=== PATIENT | male | born 1955 | race Caucasian/White ===

== ENCOUNTER 2017-12-10 17:00 | Inpatient (IN) | payer MEDICARE ==
[2017-12-10 17:00] VITALS: BMI 27.4
[2017-12-10] MEDS ORDERED: Sodium Chloride 0.9% 1,000 ML IV ONE (17:57)
--- NOTE | 2017-12-10 18:00 | C.PDOC ---
History Of Present Illness <Lindsay Valencia - Last Filed: 12/10/17 17:57> <Penny Maria Alana - Last Filed: 12/10/17 18:04> rCistopher Gage is a 62 year old male, with a past medical history of, who presents to the emergency department complaining of fever, body aches, cough and diarrhea onset since last night. Patient had temperature of 102.2. He denies any other medical complaints. PMD: None provided. (Penny Maria) <Lindsay Valencia - Last Filed: 12/10/17 17:57> History Per: Patient History/Exam Limitations: no limitations Onset/Duration Of Symptoms: Days (x1) Current Symptoms Are (Timing): Still Present Associated Symptoms: Fever, Cough <Penny Maria - Last Filed: 12/10/17 18:04> Time Seen by Provider: 12/10/17 17:48 Chief Complaint (Nursing): Flu-like Symptoms Past Medical History - Medical History PMH: Anemia, Arthritis, CAD, CHF, CVA, Diabetes, HTN, Hypercholesterolemia, Peripheral Edema Denies: Chronic Kidney Disease Surgical History: CABG, Cholecystectomy, Coronary Stent, Pacemaker Family History: States: Unknown Family Hx - Social History Hx Alcohol Use: No Hx Substance Use: No - Immunization History Hx Tetanus Toxoid Vaccination: No Hx Influenza Vaccination: Yes Hx Pneumococcal Vaccination: Yes <Lindsay Valencia - Last Filed: 12/10/17 17:57> Vital Signs: Last Vital Signs Temp 102.2 F H 12/10/17 17:30 Pulse 77 12/10/17 17:30 Resp 20 12/10/17 17:30 BP 165/73 H 12/10/17 17:30 Pulse Ox 94 L 12/10/17 18:00 - [facility] Procedures CORONAR ARTERIOGR-2 CATH (02/01/14) ENDOSC POLYPECTOMY OF LG INTEST (07/26/15) ESOPHAGOGASTRODUODENOSCOPY [EGD] W/CLOSED BIOPSY (07/26/15) LEFT HEART CARDIAC CATH (02/01/14) LT HEART ANGIOCARDIOGRAM (02/01/14) OCCUPATIONAL THERAPY (11/06/14) OTHER SKIN & SUBQ I D (06/05/13) PACKED CELL TRANSFUSION (09/09/14) PHYSICAL THERAPY NEC (11/06/14) TOE AMPUTATION (09/09/14) ED Course And Treatment O2 Sat by Pulse Oximetry: 94 <Lindsay Valencia - Last Filed: 12/10/17 17:57> Disposition <Lindsay Valencia - Last Filed: 12/10/17 17:57> <Penny Maria - Last Filed: 12/10/17 18:04> - Disposition Forms: [facility] (Khmer)
--- NOTE | 2017-12-10 18:08 | C.PDOC ---
History Of Present Illness Cristopher Gage is a 62 year old male, with a past medical history of diabetes, HTN, CHF, and CAD, who presents to the emergency department complaining of fever, body aches, cough and diarrhea onset since last night. Patient had a max temperature of 102.2. She denies any other medical complaints. PMD: None provided. Time Seen by Provider: 12/10/17 17:48 Chief Complaint (Nursing): Flu-like Symptoms History Per: Patient History/Exam Limitations: no limitations Onset/Duration Of Symptoms: Days (x1) Current Symptoms Are (Timing): Still Present Associated Symptoms: Fever, Cough, Diarrhea, Other (body aches) Ear Symptoms: Bilateral: None Past Medical History Reviewed: Historical Data, Nursing Documentation, Vital Signs Vital Signs: Last Vital Signs Temp 102.2 F H 12/10/17 17:30 Pulse 77 12/10/17 17:30 Resp 20 12/10/17 17:30 BP 165/73 H 12/10/17 17:30 Pulse Ox 94 L 12/10/17 19:02 - Medical History PMH: Anemia, Arthritis, CAD, CHF, CVA, Diabetes, HTN, Hypercholesterolemia, Peripheral Edema Denies: Chronic Kidney Disease Surgical History: CABG, Cholecystectomy, Coronary Stent, Pacemaker - [facility] Procedures CORONAR ARTERIOGR-2 CATH (02/01/14) ENDOSC POLYPECTOMY OF LG INTEST (07/26/15) ESOPHAGOGASTRODUODENOSCOPY [EGD] W/CLOSED BIOPSY (07/26/15) LEFT HEART CARDIAC CATH (02/01/14) LT HEART ANGIOCARDIOGRAM (02/01/14) OCCUPATIONAL THERAPY (11/06/14) OTHER SKIN & SUBQ I D (06/05/13) PACKED CELL TRANSFUSION (09/09/14) PHYSICAL THERAPY NEC (11/06/14) TOE AMPUTATION (09/09/14) Family History: States: Unknown Family Hx - Social History Hx Tobacco Use: No (Former smoker) Hx Alcohol Use: No Hx Substance Use: No - Immunization History Hx Tetanus Toxoid Vaccination: No Hx Influenza Vaccination: Yes Hx Pneumococcal Vaccination: Yes Review Of Systems Constitutional: Positive for: Fever, Other (body aches). Negative for: Chills Respiratory: Positive for: Cough Gastrointestinal: Positive for: Diarrhea Physical Exam - Physical Exam Appears: No Acute Distress Skin: Warm, Dry Head: Atraumatic, Normacephalic Eye(s): bilateral: Normal Inspection, PERRL, EOMI Ear(s): Bilateral: Normal Nose: Normal Oral Mucosa: Moist Throat: Normal Neck: Normal ROM, Supple Cardiovascular: Rhythm Regular, No Murmur Respiratory: Rhonchi (mild), No Wheezing Gastrointestinal/Abdominal: Normal Exam, Soft, No Tenderness, No Guarding, No Rebound Back: Normal Inspection, No CVA Tenderness, No Vertebral Tenderness Extremity: Normal ROM, No Pedal Edema, No Deformity, No Swelling Neurological/Psych: Oriented x3 (alert) ED Course And Treatment - Laboratory Results Result Diagrams: 12/10/17 18:29 12/10/17 18:29 Lab Interpretation: Abnormal ECG: Interpreted By Me ECG Rhythm: Sinus Rhythm, Nonspecific Changes Rate From EC O2 Sat by Pulse Oximetry: 94 (RA) Pulse Ox Interpretation: Abnormal - Radiology CXR: Interpreted by Me CXR Interpretation: Yes: Cardiomegaly Progress Note: Treated with IVF NSS and duoneb x 3. On re-evaluation lungs clear. Treated with tylenol and tamiflu Reassessment Condition: Improved - Physician Consult Information Physician Contacted: Ben Rodriguez Outcome Of Conversation: admit Medical Decision Making Medical Decision Making: Initial Impression: Flu Initial Plan: --EKG --CMP --CBC w/ differential --Chest two views (PA/LAT) [RAD] --Combivent Respimat 3 ml IH Q15H --Sodium Chloride 1,000 ml IV 1,000 mls/hr --Blood culture --Urine culture --Nebulizer treatment --Peak flow pre/post Tx --Influenza A B --reevaluation Disposition Discussed With : Ben Rodriguez Doctor Will See Patient In The: Hospital - Disposition Disposition: HOSPITALIZED Disposition Time: 19:00 Condition: STABLE Forms: [facility] (Yakut) - POA Present On Arrival: None - Clinical Impression Clinical Impression: Influenza, Fever, Diabetes - Scribe Statement The provider has reviewed the documentation as recorded by the Sashaibdavid Griffin All medical record entries made by the Scribe were at my direction and personally dictated by me. I have reviewed the chart and agree that the record accurately reflects my personal performance of the history, physical exam, medical decision making, and the department course for this patient. I have also personally directed, reviewed, and agree with the discharge instructions and disposition.
[2017-12-10] MEDS: Albuterol-Ipratrop 3 mg / 0.5 (3 ml) UD IH SCH ×3 (18:10→18:40)
[2017-12-10] MEDS ORDERED: Albuterol-Ipratrop 3 mg / 0.5 (3 ml) UD ONE (18:14)
[2017-12-10 18:36] LABS: BASO # 0.1 K/uL (0.0-0.2); BASO % 0.5 % (0.0-2.0); EOS % 0.1 % (0.0-4.0); LYMPH # 0.6 K/uL (1.0-4.3); LYMPH % 5.3 % (20.0-40.0); MEAN CELL VOLUME 92.1 fL (80.0-94.0); MEAN CORPUSCULAR HGB CONC 33.7 g/dL (33.0-37.0); MEAN PLATELET VOLUME 9.5 fL (7.2-11.7); MONO # 2.2 K/uL (0.0-0.8); MONO % 19.3 % (0.0-10.0); NEUT # 8.6 K/uL (1.8-7.0); NEUT % 74.8 % (50.0-75.0); PLATELET COUNT 123 K/uL (130-400); RED CELL DISTRIBUTION WIDTH 13.3 % (11.5-14.5); WHITE BLOOD COUNT 11.5 K/uL (4.8-10.8)
[2017-12-10 18:50] LABS: ALB/GLOB RATIO 1.2 (1.0-2.1); ALBUMIN 3.8 g/dL (3.5-5.0); CALCIUM 9.1 mg/dl (8.6-10.4)
[2017-12-10 19:24] LABS: BANDS 1 % (0-2); EOSINOPHIL 1 % (0-4); LYMPHOCYTE 5 % (20-40); MONOCYTE 18 % (0-10); NEUTROPHIL 75 % (50-75); PLATELET ESTIMATE SLIGHTLY DECREASED (NORMAL); TOTAL CELLS COUNTED 100
[2017-12-10 19:24] LABS: PH,URINE 5.5 (5.0-8.0); URINE BILIRUBIN NEGATIVE (NEGATIVE); URINE BLOOD TRACE-INTACT (NEGATIVE); URINE CLARITY CLEAR (Clear); URINE COLOR YELLOW (YELLOW); URINE GLUCOSE (UA) 250 mg/dL (Normal); URINE LEUKOCYTE ESTERASE NEGATIVE Leu/uL (Negative); URINE NITRATE NEGATIVE (NEGATIVE); URINE PROTEIN 100 mg/dL (NEGATIVE); URINE UROBILINOGEN 0.2 mg/dL (0.2-1.0)
[2017-12-10 19:25] LABS: ANISOCYTOSIS SLIGHT; POIKILOCYTOSIS SLIGHT
[2017-12-10 19:28] LABS: SQUAMOUS EPITHIAL < 1 /hpf (0-5); URINE HYALINE CAST >20 /lpf (0-2)
[2017-12-10] MEDS ORDERED: Home Med 1 UNIT (Atorvastatin Calcium [Atorvastatin Calcium] 80 MG) PO SCH (22:00)
--- NOTE | 2017-12-10 23:43 | CP.PCM.HP ---
History of Present Illness - History of Present Illness History of Present Illness: CC: cough, shortness of breath, weakness, lethargy, fever HPI: 62 year old male, with a past medical history of diabetes on insulin, HTN, CHF, dilated cadiomyopathyand CAD, who presents to the emergency department complaining of fever, body aches, cough with sputum and diarrhea onset since last night. Patient had a max temperature of 102.2. pt also c/o chest pain on coughing. She denies any other medical complaints.pt is a poor historain and giving vague history cannot provide much details Present on Admission - Present on Admission Any Indicators Present on Admission: Yes Review of Systems - Review of Systems Systems not reviewed;Unavailable: Acuity of Condition - Constitutional Constitutional: Fatigue, Fever, Lethargy, Malaise, Weakness - EENT Eyes: absent: As Per HPI, Blind Spots, Blurred Vision, Change in Vision, Decreased Night Vision, Diplopia, Discharge, Dry Eye, Exophthalmos, Floaters, Irritation, Itchy Eyes, Loss of Peripheral Vision, Pain, Photophobia, Requires Corrective Lenses, Sees Flashes, Spots in Vision, Tunnel Vision, Other Visual Disturbances, Loss of Vision, Other Ears: absent: As Per HPI, Decreased Hearing, Ear Discharge, Ear Pain, Tinnitus, Abnormal Hearing, Disequilibrium, Dizziness, Other Nose/Mouth/Throat: Nasal Congestion, Nasal Discharge - Cardiovascular Cardiovascular: Dyspnea, Dyspnea on Exertion - Respiratory Respiratory: Cough, Dyspnea, Dyspnea on Exertion, Wheezing, Chest Congestion, Pain with Coughing - Gastrointestinal Gastrointestinal: absent: As Per HPI, Abdominal Pain, Belching, Bloating, Change in Bowel Habits, Change in Stool Character, Coffee Ground Emesis, Constipation, Cramping, Diarrhea, Dyspepsia, Dysphagia, Early Satiety, Excessive Flatus, Fecal Incontinence, Heartburn, Hematemesis, Hematochezia, Loose Stools, Melena, Nausea, Odynophagia, Temesmus, Vomiting, Other - Genitourinary Genitourinary: absent: As Per HPI, Change in Urinary Stream, Difficulty Urinating, Dysuria, Flank Pain, Hematuria, Pyuria, Nocturia, Urinary Incontinence, Urinary Frequency, Urinary Hesitance, Urinary Urgency, Voiding Freq/Small Amts, Freq UTI, Hx Renal/Bladder Calculi, Hx /Renal Surgery, Bladder Distension, Other Past Patient History - Tetanus Immunizations Tetanus Immunization: Unknown - Past Medical History & Family History Past Medical History?: Yes - Past Social History Smoking Status: Former Smoker - CARDIAC Hx Congestive Heart Failure: Yes Hx Hypercholesterolemia: Yes Hx Hypertension: Yes Hx Pacemaker: Yes Hx Peripheral Edema: Yes - HEENT Hx HEENT Problems: Yes (RETINAL BLEEDING) Hx Glaucoma: Yes - RENAL Hx Chronic Kidney Disease: No - HEMATOLOGICAL/ONCOLOGICAL Hx Anemia: Yes - INTEGUMENTARY Hx Dermatological Problems: No - MUSCULOSKELETAL/RHEUMATOLOGICAL Hx Falls: Yes - PSYCHIATRIC Hx Substance Use: No - SURGICAL HISTORY Hx Cholecystectomy: Yes Hx Coronary Artery Bypass Graft: Yes Hx Coronary Stent: Yes - ANESTHESIA Hx Anesthesia: Yes Hx Anesthesia Reactions: No Hx Malignant Hyperthermia: No Meds Allergies/Adverse Reactions: Allergies Allergy/AdvReac Type Severity Reaction Status Date / Time No Known Allergies Allergy Verified 02/01/14 09:10 Physical Exam - Constitutional Appears: No Acute Distress - Head Exam Head Exam: ATRAUMATIC, NORMAL INSPECTION, NORMOCEPHALIC - Eye Exam Eye Exam: EOMI, Normal appearance, PERRL Pupil Exam: NORMAL ACCOMODATION, PERRL - Respiratory Exam Respiratory Exam: Decreased Breath Sounds, Rhonchi, Wheezes, NORMAL BREATHING PATTERN - Cardiovascular Exam Cardiovascular Exam: REGULAR RHYTHM - GI/Abdominal Exam GI & Abdominal Exam: Normal Bowel Sounds, Soft. absent: Tenderness - Neurological Exam Neurological exam: Alert, Oriented x3 - Psychiatric Exam Psychiatric exam: Anxious Results - Vital Signs Recent Vital Signs: Last Vital Signs Temp 98.9 F 12/10/17 22:39 Pulse 58 L 12/10/17 22:39 Resp 20 12/10/17 22:39 BP 151/65 H 12/10/17 22:39 Pulse Ox 95 12/10/17 22:39 - Labs Result Diagrams: 12/10/17 18:29 12/10/17 18:29 Labs: Laboratory Results - last 24 hr 12/10/17 12/10/17 12/10/17 18:29 18:29 18:32 WBC 11.5 H RBC 2.90 L Hgb 9.0 L Hct 26.8 L MCV 92.1 MCH 31.0 MCHC 33.7 RDW 13.3 Plt Count 123 L D MPV 9.5 Neut % (Auto) 74.8 Lymph % (Auto) 5.3 L Reeves % (Auto) 19.3 H Eos % (Auto) 0.1 Baso % (Auto) 0.5 Neut # (Auto) 8.6 H Lymph # (Auto) 0.6 L Reeves # (Auto) 2.2 H Eos # (Auto) 0.0 Baso # (Auto) 0.1 Neutrophils % (Manual) 75 Band Neutrophils % 1 Lymphocytes % (Manual) 5 L Monocytes % (Manual) 18 H Eosinophils % (Manual) 1 Platelet Estimate Slightly decreased L Poikilocytosis (manual Slight Anisocytosis (manual) Slight Sodium 131 L Potassium 4.8 Chloride 95 L Carbon Dioxide 27 Anion Gap 13 BUN 37 H Creatinine 2.1 H Est GFR ( Amer) 39 Est GFR (Non-Af Amer) 32 POC Glucose (mg/dL) Random Glucose 329 H Calcium 9.1 Total Bilirubin 0.5 AST 27 ALT 27 Alkaline Phosphatase 69 Total Protein 7.0 Albumin 3.8 Globulin 3.2 Albumin/Globulin Ratio 1.2 Urine Color Urine Clarity Urine pH Ur Specific [place] Urine Protein Urine Glucose (UA) Urine Ketones Urine Blood Urine Nitrate Urine Bilirubin Urine Urobilinogen Ur Leukocyte Esterase Urine WBC (Auto) Urine RBC (Auto) Ur Squamous Epith Cells Hyaline Casts Influenza Typ A,B (EIA) Pos for influenza a H 12/10/17 12/10/17 19:08 21:12 WBC RBC Hgb Hct MCV MCH MCHC RDW Plt Count MPV Neut % (Auto) Lymph % (Auto) Reeves % (Auto) Eos % (Auto) Baso % (Auto) Neut # (Auto) Lymph # (Auto) Reeves # (Auto) Eos # (Auto) Baso # (Auto) Neutrophils % (Manual) Band Neutrophils % Lymphocytes % (Manual) Monocytes % (Manual) Eosinophils % (Manual) Platelet Estimate Poikilocytosis (manual Anisocytosis (manual) Sodium Potassium Chloride Carbon Dioxide Anion Gap BUN Creatinine Est GFR ( Amer) Est GFR (Non-Af Amer) POC Glucose (mg/dL) 306 H Random Glucose Calcium Total Bilirubin AST ALT Alkaline Phosphatase Total Protein Albumin Globulin Albumin/Globulin Ratio Urine Color Yellow Urine Clarity Clear Urine pH 5.5 Ur Specific [place] 1.025 Urine Protein 100 Urine Glucose (UA) 250 Urine Ketones Negative Urine Blood Trace-intact Urine Nitrate Negative Urine Bilirubin Negative Urine Urobilinogen 0.2 Ur Leukocyte Esterase Negative Urine WBC (Auto) 1 Urine RBC (Auto) 8 H Ur Squamous Epith Cells < 1 Hyaline Casts >20 H Influenza Typ A,B (EIA) Assessment & Plan (1) Diabetes Status: Acute (2) Fever Status: Acute (3) Influenza Status: Acute (4) Anemia Status: Acute (5) CHF (congestive heart failure) Status: Acute
[2017-12-11] MEDS: (Novolog) Insulin Aspart, Recombinant 100 u/ml 10 ml vial SC SCH ×4 (08:30→21:49)
--- NOTE | 2017-12-11 08:39 | RAD ---
Chest x-ray two views History: Shortness of breath. Comparison: 12/06/2016 Findings: Mild venous congestion. Biapical pleural thickening with upper lobe granulomatous changes. Cardiomegaly. Tortuous ectatic aorta. Status post median sternotomy. Prior valve replacement. Left-sided pacemaker. Calcification at the aortic knob. Degenerative changes in the spine and shoulders. Impression: Mild venous congestion. Biapical pleural thickening with upper lobe granulomatous changes. Cardiomegaly. Tortuous ectatic aorta. Status post median sternotomy. Prior valve replacement. Left-sided pacemaker. Calcification at the aortic knob.
[2017-12-11] MEDS: Enoxaparin 40 mg Syringe SC SCH (09:52)
[2017-12-11] MEDS ORDERED: (Novolog) Insulin Aspart, Recombinant 100 u/ml 10 ml vial SC ONE (12:30)
--- NOTE | 2017-12-11 21:52 | CARD ---
APPROVED REPORT EKG Measurement Heart [id number] <Conclusion> Normal sinus rhythm Possible Left atrial enlargement Nonspecific ST and T wave abnormality Abnormal ECG
--- NOTE | 2017-12-11 22:43 | CP.PCM.PN ---
Subjective - Date & Time of Evaluation Date of Evaluation: 12/11/17 Time of Evaluation: 19:40 - Subjective Subjective: Pt seen and evaluated at bedside, is still coughing and feels weak and short of breath on medical management Objective - Vital Signs/Intake and Output Vital Signs (last 24 hours): Temp Pulse Resp BP Pulse Ox 100.3 F H 63 18 153/63 H 95 12/11/17 22:03 12/11/17 22:03 12/11/17 22:03 12/11/17 22:03 12/11/17 15:57 Intake and Output: 12/11/17 12/12/17 18:59 06:59 Intake Total 300 200 Balance 300 200 - Medications Medications: Current Medications Acetaminophen (Tylenol 325mg Tab) 650 mg PO Q6 PRN PRN Reason: Fever >100.4 F Last Admin: 12/11/17 09:49 Dose: 650 mg Carvedilol (Coreg) 25 mg PO BID [facility] Last Admin: 12/11/17 17:42 Dose: 25 mg Clopidogrel Bisulfate (Plavix) 75 mg PO DAILY [facility] Last Admin: 12/11/17 09:49 Dose: 75 mg Enoxaparin Sodium (Lovenox) 40 mg SC DAILY [facility] Last Admin: 12/11/17 09:52 Dose: 40 mg Furosemide (Lasix) 40 mg PO TID [facility] Hydralazine HCl (Apresoline) 50 mg PO TID [facility] Last Admin: 12/11/17 17:42 Dose: 50 mg Ceftriaxone Sodium 1 gm/ (Sodium Chloride) 100 mls @ 100 mls/hr IVPB Q24H [facility] Insulin Aspart (Novolog) 0 unit SC ACHS [facility] PRN Reason: Protocol Last Admin: 12/11/17 21:49 Dose: 2 unit Isosorbide Mononitrate (Imdur) 60 mg PO DAILY [facility] Last Admin: 12/11/17 09:49 Dose: 60 mg Oseltamivir Phosphate (Tamiflu Cap) 75 mg PO BID [facility] Stop: 12/15/17 20:00 Last Admin: 12/11/17 17:42 Dose: 75 mg Rosuvastatin Calcium (Crestor) 10 mg PO HS [facility] Last Admin: 12/11/17 21:48 Dose: 10 mg - Labs Labs: 12/10/17 18:29 12/10/17 18:29 - Constitutional Appears: No Acute Distress - Head Exam Head Exam: ATRAUMATIC, NORMAL INSPECTION, NORMOCEPHALIC - Eye Exam Eye Exam: EOMI, Normal appearance, PERRL Pupil Exam: NORMAL ACCOMODATION, PERRL - Respiratory Exam Respiratory Exam: Decreased Breath Sounds, Rales, Rhonchi - Cardiovascular Exam Cardiovascular Exam: REGULAR RHYTHM, +S1, +S2. absent: Murmur - GI/Abdominal Exam GI & Abdominal Exam: Soft, Normal Bowel Sounds. absent: Tenderness - Rectal Exam Rectal Exam: Deferred Assessment and Plan (1) Diabetes Status: Acute (2) Fever Status: Acute (3) Influenza Status: Acute (4) CHF (congestive heart failure) Status: Acute (5) Peripheral vascular disease Status: Acute
[2017-12-11 23:27] VITALS: RESP 20
--- NOTE | 2017-12-12 02:32 | CON ---
CARDIOLOGY CONSULT REASON FOR CONSULTATION: Congestive heart failure and shortness of breath. HISTORY OF PRESENT ILLNESS: This patient is 62 years old male who has a history ischemic cardiomyopathy, status post coronary artery bypass surgery, mitral valve replacement or repair, and history of ICD placement. The patient was admitted because of fever, generalized fatigue, cough, and diarrhea from the night before admission. The patient had a temperature of 102.2. The patient denies history of retrosternal chest pain. SOCIAL HISTORY: Patient is a nonsmoker and nondrinker. REVIEW OF SYSTEMS: The patient denies any dizziness or syncope and is unaware any recent discharge of the defibrillator. MEDICATIONS: Hydralazine 50 mg t.i.d, Coreg 25 mg once a day, Crestor 10 mg once a day, Imdur 60 mg once a day, Lasix 40 mg p.o. twice a day, Lovenox 40 mg subcutaneous once a day, Novolog insulin, Plavix 75 mg once a day, Tamiflu 75 mg twice a day, and Tylenol 650 mg q.6 hours for temperature of more than 100.4. PAST MEDICAL HISTORY: History of coronary artery disease and a cardiac catheterization in 01/2014, the patient was found to have severe calcified tortuous three-vessel disease and underwent carotid artery bypass surgery as well as mitral valve repair or replacement. The patient also had history of hypertension and diabetes mellitus. PHYSICAL EXAMINATION: GENERAL: The patient is a middle-aged male, who does not appear to be in acute distress. VITAL SIGNS: Blood pressure 150/66, heart rate 61, temperature 98.7, respirations 18. HEENT: Pale conjunctivae. CHEST: Bilateral rhonchi. HEART: S1 and S2. Regular. ABDOMEN: Soft EXTREMITIES: 1+ pitting edema EKG reveals sinus rhythm at the rate of 66, nonspecific lateral Q-wave changes . Chest x-ray revealed cardiomegaly and mild congestive heart failure, ICD leak in the right ventricle and mitral valve ring is noted. LABORATORY DATA: Hemoglobin and hematocrit 9 and 26.8, white count of 11.5, platelet count 153,000. Sodium 131, potassium 4.8, chloride 95, CO2 of 27, glucose 329, BUN 37, creatinine 2.1. Serology is positive for influenza AH. ASSESSMENT: 1. Influenza AH infection. 2. Congestive heart failure. 3. Ischemic cardiomyopathy. 4. Status post mitral valve repair or replacement. The patient was not on Coumadin therapy at home but was on Plavix only. RECOMMENDATIONS: Continue hydralazine 50 mg t.i.d., Coreg 25 mg once a day, Crestor 10 mg once a day, Lasix 40 mg p.o. twice, Lovenox 40 mg once day, Plavix 75 mg once a day, Tamiflu 75 mg twice as day. Obtain an echocardiogram to evaluate left ventricular systolic function as well as the nature of mitral valve surgery with replacement or repair and to rule out any possibility of vegetation. In the mean time, obtain 2 sets of blood cultures. Arnel Holman MD
[2017-12-12 07:31] LABS: BASO % 0.7 % (0.0-2.0); EOS % 0.6 % (0.0-4.0); HEMOGLOBIN 8.7 g/dL (12.0-18.0); LYMPH # 0.9 K/uL (1.0-4.3); LYMPH % 13.1 % (20.0-40.0); MEAN CELL VOLUME 91.3 fL (80.0-94.0); MEAN CORPUSCULAR HEMOGLOBIN 31.7 pg (27.0-31.0); MEAN CORPUSCULAR HGB CONC 34.7 g/dL (33.0-37.0); MEAN PLATELET VOLUME 9.2 fL (7.2-11.7); MONO # 1.4 K/uL (0.0-0.8); MONO % 20.9 % (0.0-10.0); NEUT # 4.4 K/uL (1.8-7.0); NEUT % 64.7 % (50.0-75.0); PLATELET COUNT 116 K/uL (130-400); RBC 2.76 Mil/uL (4.40-5.90); RED CELL DISTRIBUTION WIDTH 13.3 % (11.5-14.5); WHITE BLOOD COUNT 6.7 K/uL (4.8-10.8)
[2017-12-12 07:53] LABS: ALBUMIN 3.4 g/dL (3.5-5.0); CALCIUM 8.9 mg/dl (8.6-10.4)
[2017-12-12] MEDS: (Novolog) Insulin Aspart, Recombinant 100 u/ml 10 ml vial SC SCH ×4 (08:29→21:52)
[2017-12-12] MEDS: Enoxaparin 40 mg Syringe SC SCH (10:29)
[2017-12-12 10:54] LABS: BANDS 7 % (0-2); BASOPHIL 1 % (0-2); EOSINOPHIL 1 % (0-4); LYMPHOCYTE 16 % (20-40); MONOCYTE 21 % (0-10); NEUTROPHIL 54 % (50-75); PLATELET ESTIMATE SLIGHTLY DECREASED (NORMAL); TOTAL CELLS COUNTED 100
--- NOTE | 2017-12-12 13:10 | CARD ---
APPROVED REPORT EXAM: Two-dimensional and M-mode echocardiogram with Doppler and color Doppler. Other Information Quality : GoodRhythm : INDICATION Congestive Heart Failure fever RISK FACTORS Diabetes 2D DIMENSIONS IVSd1.4 (0.7-1.1cm)Aortic Root (2D)3.4 (2.0-3.7cm) LVDd5.2 (3.9-5.9cm)LVOT Diameter2.5 (1.8-2.4cm) PWd1.3 (0.7-1.1cm)LVDs4.3 (2.5-4.0cm) FS (%) 16.3 %LVEF (%)34.0 (>50%) M-Mode DIMENSIONS Left Atrium (MM)4.92 (2.5-4.0cm)Aortic Root3.43 (2.2-3.7cm) Aortic Cusp Exc.1.35 (1.5-2.0cm) Aortic Valve AoV Peak Fcvtzygq846.0cm/sAoV VTI73.3cmAO Peak GR.37mmHg LVOT Peak Sumomlzo89.6cm/sLVOT VTI18.99cmAO Mean GR.22mmHg ISSA (VMAX)1.70vu6CJO (VTI)1.30cm2 Mitral Valve MV E Jwkcmrla814.6cm/sMV E Peak Gr.22mmHgMV A Soayehxu56.4cm/s MV E Mean Gr.5mmHgMV TQE10xxA/A ratio1.9 MVA (PHT)2.58cm2 TDI E/Lateral E'0.0E/Medial E'0.0 Tricuspid Valve TR Peak Vxbxuhxu212up/sTR Peak Gr.62mwDiKGIW33qhAn LEFT VENTRICLE The left ventricle is normal size. There is borderline concentric left ventricular hypertrophy. Left ventricle systolic function is mildly impaired. The Ejection Fraction is 50-55%. There is hypokinesis in the basal inferior wall. There is hypokinesis in the basal septal wall. Transmitral Doppler flow pattern is Grade II-pseudonormal filling dynamics. There is no ventricular septal defect visualized. RIGHT VENTRICLE The right ventricle is normal size. The right ventricular systolic function is normal. ATRIA The left atrium is moderately dilated. The right atrium is moderately dilated. AORTIC VALVE The aortic valve is moderately calcified. The aortic valve is tri-cuspid. With decrease in cusp separation No aortic regurgitation is present. There is severe valvular aortic stenosis. Calculated aortic valve area is 1.0 cm2 with maximum pressure gradient of 39 mmHg, however by planimetry the valve area is 0.6 cm MITRAL VALVE Calcified annulus and valve with calcification of subvalvular apparatus suggestive of rheumatic origin There is no evidence of mitral valve prolapse. Mitral regurgitation is trace. TRICUSPID VALVE Calcified valve There is moderate tricuspid regurgitation. Right ventricular systolic pressure is estimated at greater than 60 mmHg. There is severe pulmonary hypertension. PULMONIC VALVE The pulmonic valve is not well visualized. Severe regurgitation with 2 jets GREAT VESSELS The aortic root is normal in size. The ascending aorta is normal in size. The IVC is dilated. PERICARDIAL EFFUSION There is no pericardial effusion. <Conclusion> There is borderline concentric left ventricular hypertrophy. Left ventricle systolic function is mildly impaired. The Ejection Fraction is 50-55%. There is hypokinesis in the basal inferior wall. There is hypokinesis in the basal septal wall. Transmitral Doppler flow pattern is Grade II-pseudonormal filling dynamics. The right atrium is moderately dilated. There is severe valvular aortic stenosis. There is severe pulmonary hypertension. Severe pulmonic regurgitation with 2 jets
--- NOTE | 2017-12-12 22:33 | CP.PCM.PN ---
Subjective - Date & Time of Evaluation Date of Evaluation: 12/12/17 Time of Evaluation: 18:40 - Subjective Subjective: Pt seen and evaluated at bedside, afebrile,, less short of breath, less tacypneac, no nausea, vomitting Objective - Vital Signs/Intake and Output Vital Signs (last 24 hours): Temp Pulse Resp BP Pulse Ox 98.7 F 62 20 128/55 L 95 12/12/17 22:07 12/12/17 22:07 12/12/17 22:07 12/12/17 22:07 12/12/17 16:36 Intake and Output: 12/12/17 12/13/17 18:59 06:59 Intake Total 400 320 Balance 400 320 - Medications Medications: Current Medications Acetaminophen (Tylenol 325mg Tab) 650 mg PO Q6 PRN PRN Reason: Fever >100.4 F Last Admin: 12/11/17 09:49 Dose: 650 mg Carvedilol (Coreg) 25 mg PO BID [facility] Last Admin: 12/12/17 17:34 Dose: 25 mg Clopidogrel Bisulfate (Plavix) 75 mg PO DAILY [facility] Last Admin: 12/12/17 10:30 Dose: 75 mg Enoxaparin Sodium (Lovenox) 40 mg SC DAILY [facility] Last Admin: 12/12/17 10:29 Dose: 40 mg Furosemide (Lasix) 40 mg PO Q8H [facility] Hydralazine HCl (Apresoline) 50 mg PO TID [facility] Last Admin: 12/12/17 17:34 Dose: 50 mg Ceftriaxone Sodium 1 gm/ (Sodium Chloride) 100 mls @ 100 mls/hr IVPB Q24H [facility] Last Admin: 12/11/17 22:51 Dose: 100 mls/hr Insulin Aspart (Novolog) 0 unit SC ACHS [facility] PRN Reason: Protocol Last Admin: 12/12/17 21:52 Dose: 2 unit Isosorbide Mononitrate (Imdur) 60 mg PO DAILY [facility] Last Admin: 12/12/17 10:31 Dose: 60 mg Oseltamivir Phosphate (Tamiflu Cap) 75 mg PO BID [facility] Stop: 12/15/17 20:00 Last Admin: 12/12/17 17:34 Dose: 75 mg Rosuvastatin Calcium (Crestor) 10 mg PO HS [facility] Last Admin: 12/12/17 21:53 Dose: 10 mg - Labs Labs: 12/12/17 07:12 12/12/17 07:12 - Constitutional Appears: No Acute Distress - Head Exam Head Exam: ATRAUMATIC, NORMAL INSPECTION, NORMOCEPHALIC - Eye Exam Eye Exam: EOMI, Normal appearance, PERRL Pupil Exam: NORMAL ACCOMODATION, PERRL - Respiratory Exam Respiratory Exam: Clear to Ausculation Bilateral, NORMAL BREATHING PATTERN - Cardiovascular Exam Cardiovascular Exam: +S1, +S2, Murmur Additional comments: 4/6 widespread murmur through out precordium including tricuspid, mitral and aortic area S3 positive - GI/Abdominal Exam GI & Abdominal Exam: Soft, Normal Bowel Sounds. absent: Tenderness - Rectal Exam Rectal Exam: Deferred - Neurological Exam Neurological Exam: Alert, Awake, CN II-XII Intact, Normal Gait, Oriented x3 - Psychiatric Exam Psychiatric exam: Normal Affect, Normal Mood Assessment and Plan (1) Diabetes Status: Acute (2) Fever Status: Acute (3) Influenza Assessment & Plan: tamiflu Status: Acute (4) Anemia Status: Acute (5) CHF (congestive heart failure) Status: Acute
--- NOTE | 2017-12-12 22:42 | PN ---
DATE: SUBJECTIVE: The patient denies retrosternal chest pain. He is experiencing cough and has low-grade fever. PHYSICAL EXAMINATION: VITAL SIGNS: Blood pressure 178/74, heart rate 65, temperature 99.7, respirations 20. The latest blood pressure is 121/59 this afternoon. HEENT: Pale conjunctivae. CHEST: Bilateral rhonchi. HEART: S1 and S2 regular. ABDOMEN: Soft. EXTREMITIES: Trace leg edema. LABORATORY DATA: Today's SMA-7, sodium 137, potassium 4.5, chloride 97, CO2 of 28, glucose 238, BUN 50, creatinine 2.2 . Hemoglobin and hematocrit are 8.7 and 25.2, white count 6.7, platelet count is slightly below normal at 116,000. ASSESSMENT: 1. Influenza A/h infection. 2. Congestive heart failure. 3. Ischemic cardiomyopathy. 4. Status post coronary artery bypass surgery, as well as mitral valve repair. CONDITIONS: I did review the echocardiographic study report which revealed ejection fraction in the range of 50% to 55%, hypokinesis in the basal anterior wall, severe valvular aortic stenosis and severe pulmonary hypertension. The patient will be maintained on hydralazine 50 mg t.i.d., IV Rocephin at 1 gm daily, Coreg at 25 mg once a day, Crestor at 10 mg once a day, Imdur at 60 mg once a day, Lasix at 40 mg p.o. three times a day, Lovenox at 40 mg once a day, Plavix 75 mg once a day, Tamiflu at 75 mg twice a day. I will discuss case with primary physician, Dr. Ben Rodriguez. Arnel Holman MD
[2017-12-13 07:14] LABS: BASO # 0.1 K/uL (0.0-0.2); BASO % 1.3 % (0.0-2.0); EOS # 0.1 K/uL (0.0-0.7); EOS % 1.3 % (0.0-4.0); HEMOGLOBIN 8.7 g/dL (12.0-18.0); LYMPH % 16.1 % (20.0-40.0); MEAN CORPUSCULAR HEMOGLOBIN 31.9 pg (27.0-31.0); MEAN CORPUSCULAR HGB CONC 35.1 g/dL (33.0-37.0); MEAN PLATELET VOLUME 9.3 fL (7.2-11.7); MONO # 0.9 K/uL (0.0-0.8); MONO % 14.3 % (0.0-10.0); NEUT # 4.1 K/uL (1.8-7.0); RBC 2.71 Mil/uL (4.40-5.90); RED CELL DISTRIBUTION WIDTH 12.9 % (11.5-14.5); WHITE BLOOD COUNT 6.2 K/uL (4.8-10.8)
[2017-12-13] MEDS: (Novolog) Insulin Aspart, Recombinant 100 u/ml 10 ml vial SC SCH ×3 (08:02→17:30)
[2017-12-13 08:23] LABS: ALBUMIN 3.2 g/dL (3.5-5.0); CALCIUM 8.8 mg/dl (8.6-10.4)
[2017-12-13] MEDS: Enoxaparin 40 mg Syringe SC SCH (09:25)
[2017-12-13 13:43] VITALS: PULSE 60
[2017-12-13 15:36] VITALS: TEMP 98.7; O2SAT 96
[2017-12-13 17:31] VITALS: BP 134/75
--- NOTE | 2017-12-13 21:27 | PN ---
SUBJECTIVE: The patient is experiencing productive cough. He denies any shortness of breath or chest pain at this time. PHYSICAL EXAMINATION: VITAL SIGNS: Blood pressure 141/64, heart rate 60, temperature 98.7, respirations 20. HEENT: Pale conjunctivae. CHEST: Bilateral rhonchi. HEART: S1 and S2 regular. Grade 4/6 ejection systolic murmur over the left sternal border. EXTREMITIES: Trace leg edema. LABORATORY DATA: Hemoglobin and hematocrit 8.7 and 24.7, white count 6.2, platelet count 122,000. Today's BUN and creatinine are 53 and 1.9 respectively. Blood sugar is 139. ASSESSMENT: 1. Influenza infection. 2. Severe valvular aortic stenosis. 3. Severe pulmonary hypertension. 4. Coronary artery disease, status post coronary artery bypass surgery and mitral valve ring placement. CONDITIONS: Case was discussed with Dr. Ben Rodriguez. Continue current hydralazine 50 mg t.i.d., Rocephin 1 gm daily, Coreg 25 mg once a day, Crestor 10 mg once a day, Imdur 60 mg once a day, Lasix at 40 mg p.o. q.8 hours, Lovenox at 40 mg daily, Plavix 75 mg once a day, Tamiflu at 75 mg once a day. Evaluation of the aortic valve is needed when the patient is more stable, for possible TAVR or aortic valve replacement, and will be deferred to the primary propagation manager, Dr. Avila. Arnel Holman MD
--- NOTE | 2017-12-14 00:16 | CP.PCM.DIS ---
Provider - Provider Date of Admission: 12/10/17 18:58 Attending physician: Ben Rodriguez MD Diagnosis - Discharge Diagnosis (1) Diabetes Status: Acute (2) Fever Status: Acute (3) Influenza Status: Acute (4) Anemia Status: Acute (5) CHF (congestive heart failure) Status: Acute Hospital Course - Lab Results Lab Results: Micro Results 12/10/17 18:40 Blood Blood Culture - Preliminary NO GROWTH AFTER 3 DAYS 12/10/17 18:10 Blood Blood Culture - Preliminary NO GROWTH AFTER 3 DAYS 12/10/17 Unknown Urine Urine Culture - Final No Growth (<1,000 CFU/ML) Most Recent Lab Values WBC 6.2 K/uL (4.8-10.8) 12/13/17 06:39 RBC 2.71 Mil/uL (4.40-5.90) L 12/13/17 06:39 Hgb 8.7 g/dL (12.0-18.0) L 12/13/17 06:39 Hct 24.7 % (35.0-51.0) L 12/13/17 06:39 MCV 91.0 fL (80.0-94.0) 12/13/17 06:39 MCH 31.9 pg (27.0-31.0) H 12/13/17 06:39 MCHC 35.1 g/dL (33.0-37.0) 12/13/17 06:39 RDW 12.9 % (11.5-14.5) 12/13/17 06:39 Plt Count 122 K/uL (130-400) L 12/13/17 06:39 MPV 9.3 fL (7.2-11.7) 12/13/17 06:39 Neut % (Auto) 67.0 % (50.0-75.0) 12/13/17 06:39 Lymph % (Auto) 16.1 % (20.0-40.0) L 12/13/17 06:39 [place] % (Auto) 14.3 % (0.0-10.0) H 12/13/17 06:39 Eos % (Auto) 1.3 % (0.0-4.0) 12/13/17 06:39 Baso % (Auto) 1.3 % (0.0-2.0) 12/13/17 06:39 Neut # (Auto) 4.1 K/uL (1.8-7.0) 12/13/17 06:39 Lymph # (Auto) 1.0 K/uL (1.0-4.3) 12/13/17 06:39 [place] # (Auto) 0.9 K/uL (0.0-0.8) H 12/13/17 06:39 Eos # (Auto) 0.1 K/uL (0.0-0.7) 12/13/17 06:39 Baso # (Auto) 0.1 K/uL (0.0-0.2) 12/13/17 06:39 Neutrophils % (Manual) 54 % (50-75) 12/12/17 07:12 Band Neutrophils % 7 % (0-2) H 12/12/17 07:12 Lymphocytes % (Manual) 16 % (20-40) L 12/12/17 07:12 Monocytes % (Manual) 21 % (0-10) H 12/12/17 07:12 Eosinophils % (Manual) 1 % (0-4) 12/12/17 07:12 Basophils % (Manual) 1 % (0-2) 12/12/17 07:12 Platelet Estimate Slightly decreased (NORMAL) L 12/12/17 07:12 RBC Morphology Normal 12/12/17 07:12 Poikilocytosis (manual Slight 12/10/17 18:29 Anisocytosis (manual) Slight 12/10/17 18:29 Sodium 136 mmol/L (132-148) 12/13/17 06:39 Potassium 4.4 mmol/L (3.6-5.2) 12/13/17 06:39 Chloride 96 mmol/L (98-107) L 12/13/17 06:39 Carbon Dioxide 28 mmol/L (22-30) 12/13/17 06:39 Anion Gap 16 (10-20) 12/13/17 06:39 BUN 53 mg/dL (9-20) H 12/13/17 06:39 Creatinine 1.9 mg/dL (0.8-1.5) H 12/13/17 06:39 Est GFR ( Amer) 43 12/13/17 06:39 Est GFR (Non-Af Amer) 36 12/13/17 06:39 POC Glucose (mg/dL) 334 mg/dL (65-110) H 12/13/17 16:03 Random Glucose 341 mg/dL (75-110) H 12/13/17 06:39 Calcium 8.8 mg/dl (8.6-10.4) 12/13/17 06:39 Total Bilirubin 0.3 mg/dL (0.2-1.3) 12/13/17 06:39 AST 30 U/L (17-59) 12/13/17 06:39 ALT 36 U/L (21-72) 12/13/17 06:39 Alkaline Phosphatase 82 U/L (38-126) 12/13/17 06:39 Total Protein 6.4 g/dL (6.3-8.3) 12/13/17 06:39 Albumin 3.2 g/dL (3.5-5.0) L 12/13/17 06:39 Globulin 3.2 gm/dL (2.2-3.9) 12/13/17 06:39 Albumin/Globulin Ratio 1.0 (1.0-2.1) 12/13/17 06:39 Urine Color Yellow (YELLOW) 12/10/17 19:08 Urine Clarity Clear (Clear) 12/10/17 19:08 Urine pH 5.5 (5.0-8.0) 12/10/17 19:08 Ur Specific [place] 1.025 (1.003-1.030) 12/10/17 19:08 Urine Protein 100 mg/dL (NEGATIVE) 12/10/17 19:08 Urine Glucose (UA) 250 mg/dL (Normal) 12/10/17 19:08 Urine Ketones Negative mg/dL (NEGATIVE) 12/10/17 19:08 Urine Blood Trace-intact (NEGATIVE) 12/10/17 19:08 Urine Nitrate Negative (NEGATIVE) 12/10/17 19:08 Urine Bilirubin Negative (NEGATIVE) 12/10/17 19:08 Urine Urobilinogen 0.2 mg/dL (0.2-1.0) 12/10/17 19:08 Ur Leukocyte Esterase Negative Roc[place]le/uL (Negative) 12/10/17 19:08 Urine WBC (Auto) 1 /hpf (0-5) 12/10/17 19:08 Urine RBC (Auto) 8 /hpf (0-3) H 12/10/17 19:08 Ur Squamous Epith Cells < 1 /hpf (0-5) 12/10/17 19:08 Hyaline Casts >20 /lpf (0-2) H 12/10/17 19:08 Influenza Typ A,B (EIA) Pos for influenza a (NEGATIVE) H 12/10/17 18:32 - Hospital Course Hospital Course: Patient seen & evaluated at bedside is stable for discharge Discharge Exam - Head Exam Head Exam: ATRAUMATIC, NORMAL INSPECTION, NORMOCEPHALIC Discharge Plan - Discharge Medications Prescriptions: SITagliptin [Januvia] 25 mg PO DAILY #30 tab Oseltamivir [Tamiflu Cap] 75 mg PO BID #4 cap - Follow Up Plan Condition: STABLE Disposition: HOME/ ROUTINE Additional Instructions: -FOLLOW UP WITH DR. RODRIGUEZ IN THE OFFICE WITHIN 5-7 DAYS OF DISCHARGE---CALL THE OFFICE ON FRIDAY FOR APPT TIME. -FOLLOW UP WITH DR. RICE OR YOUR PRIMARY MICA MACHINE OPERATOR IN THE OFFICE WITHIN 10-14 DAYS OF DISCHARGE---CALL THE OFFICE ON FRIDAY FOR APPT TIME. -CONTINUE HOME MEDICATIONS USUAL. -NEW PRESCRIPTIONS PER DR. RODRIGUEZ INCLUDE: 1) TAMIFLU (FOR THE FLU)---TAKE TWICE A DAY UNTIL COMPLETED. 2) JANUVIA (FOR YOUR SUGAR)----TAKE ONCE A DAY. -IF YOU HAVE ANY FURTHER CONCERNS OR QUESTIONS, CONTACT DR. RODRIGUEZ'S OFFICE. Referrals: Arnel Rice MD [Staff Provider] - Ben Rodriguez MD [Staff Provider] -
== END 2017-12-13 18:00 | disposition home or self-care (01) | DRG 153 ==
LOC: C.ER 17:00 → C.9E 18:58 → C.5S 20:02
PROVIDERS: ADMIT Internal Medicine; ATTEND Internal Medicine
DX: J11.1 Influenza due to unidentified influenza virus with other respiratory manifestations (principal); E11.51 Type 2 diabetes mellitus with diabetic peripheral angiopathy without gangrene; I27.20 Pulmonary hypertension, unspecified; I50.9 Heart failure, unspecified; I11.0 Hypertensive heart disease with heart failure; Z79.4 Long term (current) use of insulin; I25.10 Atherosclerotic heart disease of native coronary artery without angina pectoris; I25.5 Ischemic cardiomyopathy; Z86.73 Personal history of transient ischemic attack (TIA), and cerebral infarction without residual deficits; Z87.891 Personal history of nicotine dependence; Z95.1 Presence of aortocoronary bypass graft; Z95.0 Presence of cardiac pacemaker; Z79.02 Long term (current) use of antithrombotics/antiplatelets

== ENCOUNTER 2018-04-03 21:40 | Inpatient (IN) | payer MEDICARE ==
[2018-04-03 21:40] VITALS: BMI 27.4
--- NOTE | 2018-04-03 22:29 | C.PDOC ---
History Of Present Illness 62yo male, with history of CHF, diabetes, hypertension, comes in with complaints of bleeding from his left great toe with the nail falling off. He also reports bilateral pedal edema and mild dyspnea. He denies any fever, chills , chest pain, shortness of breath. Patient is a poor historian. PMD: Dr. Mar Time Seen by Provider: 04/03/18 22:03 Chief Complaint (Nursing): Abnormal Skin Integrity History Per: Patient Onset/Duration Of Symptoms: Persistent Current Symptoms Are (Timing): Still Present Location Of Injury: Left: Foot (great toe) Additional History Per: Patient Past Medical History Reviewed: Historical Data, Nursing Documentation, Vital Signs Vital Signs: Last Vital Signs Temp 98.3 F 04/07/18 07:30 Pulse 80 04/07/18 08:00 Resp 20 04/07/18 07:30 BP 170/69 H 04/07/18 09:45 Pulse Ox 97 04/07/18 07:30 - Medical History PMH: Anemia, Arthritis, CAD, CHF, CVA, Diabetes, HTN, Hypercholesterolemia, Peripheral Edema Denies: Chronic Kidney Disease Surgical History: CABG, Cholecystectomy, Coronary Stent, Pacemaker - [facility] Procedures CORONAR ARTERIOGR-2 CATH (02/01/14) ENDOSC POLYPECTOMY OF LG INTEST (07/26/15) ESOPHAGOGASTRODUODENOSCOPY [EGD] W/CLOSED BIOPSY (07/26/15) LEFT HEART CARDIAC CATH (02/01/14) LT HEART ANGIOCARDIOGRAM (02/01/14) OCCUPATIONAL THERAPY (11/06/14) OTHER SKIN & SUBQ I D (06/05/13) PACKED CELL TRANSFUSION (09/09/14) PHYSICAL THERAPY NEC (11/06/14) TOE AMPUTATION (09/09/14) Family History: States: No Known Family Hx, Unknown Family Hx - Social History Hx Tobacco Use: No (Former smoker) Hx Alcohol Use: No Hx Substance Use: No - Immunization History Hx Tetanus Toxoid Vaccination: No Hx Influenza Vaccination: Yes Hx Pneumococcal Vaccination: Yes Review Of Systems Except As Marked, All Systems Reviewed And Found Negative. Constitutional: Negative for: Fever, Chills Cardiovascular: Negative for: Chest Pain Respiratory: Positive for: Other (dyspnea). Negative for: Shortness of Breath Musculoskeletal: Positive for: Other (bilateral leg swelling; left great toe bleeding ) Physical Exam - Physical Exam Appears: Non-toxic, No Acute Distress Skin: Normal Color, Warm, Dry Head: Atraumatic, Normacephalic Eye(s): bilateral: Normal Inspection Neck: Normal ROM, Supple Chest: Symmetrical Cardiovascular: Rhythm Regular Extremity: Pedal Edema (symmetrical, bilateral), Other (left first toe with mild dried blood in nail bed) Neurological/Psych: Oriented x3 ED Course And Treatment - Laboratory Results Result Diagrams: 04/04/18 11:50 04/04/18 11:50 O2 Sat by Pulse Oximetry: 98 (RA) Pulse Ox Interpretation: Normal Medical Decision Making Medical Decision Making: Impression: Pedal edema, left 1st toe injury Plan: -- Labs -- XR Left foot -- CXR -- Urinalysis susepct chf. also nail avulsion 2/[address] rodriguez (pmd requests greta admission) lasix given Disposition - Disposition Disposition: HOSPITALIZED Disposition Time: 09:00 Condition: FAIR - Clinical Impression Clinical Impression: CHF (congestive heart failure), Nail avulsion - Scribe Statement The provider has reviewed the documentation as recorded by the Scribe (Mary Anne Sauceda) Provider Attestation: All medical record entries made by the Scribe were at my direction and personally dictated by me. I have reviewed the chart and agree that the record accurately reflects my personal performance of the history, physical exam, medical decision making, and the department course for this patient. I have also personally directed, reviewed, and agree with the discharge instructions and disposition. Decision To Admit - InPatient: Physician Admission Certification: I certify that this patient requires 2 or more midnights of care for the following reason:: needs lasix iv - . Bed Request Type: Telemetry Admitting Physician: Ben Rodriguez Patient Diagnosis: CHF (congestive heart failure), Nail avulsion
[2018-04-03 22:34] LABS: BASO # 0.1 K/uL (0.0-0.2); BASO % 1.1 % (0.0-2.0); EOS # 0.4 K/uL (0.0-0.7); HEMOGLOBIN 8.8 g/dL (12.0-18.0); LYMPH % 16.1 % (20.0-40.0); MEAN CELL VOLUME 93.8 fL (80.0-94.0); MEAN CORPUSCULAR HEMOGLOBIN 31.7 pg (27.0-31.0); MEAN CORPUSCULAR HGB CONC 33.8 g/dL (33.0-37.0); MEAN PLATELET VOLUME 9.4 fL (7.2-11.7); MONO # 0.7 K/uL (0.0-0.8); NEUT # 4.3 K/uL (1.8-7.0); NEUT % 65.8 % (50.0-75.0); RBC 2.77 Mil/uL (4.40-5.90); RED CELL DISTRIBUTION WIDTH 14.1 % (11.5-14.5); WHITE BLOOD COUNT 6.5 K/uL (4.8-10.8)
[2018-04-03 22:42] LABS: INR 1.1; PROTHROMBIN TIME 11.7 SECONDS (9.7-12.2)
[2018-04-03 22:52] LABS: ALB/GLOB RATIO 1.2 (1.0-2.1); CALCIUM 9.4 mg/dl (8.6-10.4)
[2018-04-03 22:59] LABS: TROPONIN I 0.021 ng/mL (0.00-0.120)
[2018-04-03] MEDS ORDERED: Enoxaparin 40 mg Syringe SC ONE (23:28)
[2018-04-03] MEDS ORDERED: Enoxaparin 40 mg Syringe ONE ×2 (23:46→23:51)
--- NOTE | 2018-04-04 04:42 | CP.PCM.HP ---
History of Present Illness - History of Present Illness History of Present Illness: CC: left big toe infection & LE pain HPI: 62yo male, with history of CHF, diabetes, hypertension, aortic stenosis in past , complaint with diet, medication and follow up comes in with complaints of bleeding from his left great toe with the nail falling off. He also reports bilateral pedal edema and mild dyspnea. He denies any fever, chills, chest pain , shortness of breath. Patient is a poor historian.pt also have shortness of breath Present on Admission - Present on Admission Any Indicators Present on Admission: Yes Past Patient History - Tetanus Immunizations Tetanus Immunization: Unknown - Past Medical History & Family History Past Medical History?: Yes - Past Social History Smoking Status: Former Smoker - CARDIAC Hx Congestive Heart Failure: Yes Hx Hypercholesterolemia: Yes Hx Hypertension: Yes Hx Pacemaker: Yes Hx Peripheral Edema: Yes - HEENT Hx HEENT Problems: Yes (RETINAL BLEEDING) Hx Glaucoma: Yes - RENAL Hx Chronic Kidney Disease: No - HEMATOLOGICAL/ONCOLOGICAL Hx Anemia: Yes - INTEGUMENTARY Hx Dermatological Problems: No - MUSCULOSKELETAL/RHEUMATOLOGICAL Hx Arthritis: Yes - PSYCHIATRIC Hx Substance Use: No - SURGICAL HISTORY Hx Cholecystectomy: Yes Hx Coronary Artery Bypass Graft: Yes Hx Coronary Stent: Yes - ANESTHESIA Hx Anesthesia: Yes Hx Anesthesia Reactions: No Hx Malignant Hyperthermia: No Meds Allergies/Adverse Reactions: Allergies Allergy/AdvReac Type Severity Reaction Status Date / Time No Known Allergies Allergy Verified 04/03/18 21:51 Physical Exam - Constitutional Appears: No Acute Distress - Head Exam Head Exam: ATRAUMATIC, NORMAL INSPECTION, NORMOCEPHALIC - Eye Exam Eye Exam: EOMI, Normal appearance, PERRL Pupil Exam: NORMAL ACCOMODATION, PERRL - Neck Exam Additional comments: JVD positive - Respiratory Exam Respiratory Exam: Clear to Auscultation Bilateral, NORMAL BREATHING PATTERN - Cardiovascular Exam Cardiovascular Exam: REGULAR RHYTHM - GI/Abdominal Exam GI & Abdominal Exam: Normal Bowel Sounds, Soft. absent: Tenderness - Rectal Exam Rectal Exam: Deferred - Extremities Exam Extremities exam: Positive for: pedal edema Additional comments: left toe infected, erythema in nail bed - Neurological Exam Neurological exam: Alert, CN II-XII Intact, Normal Gait, Oriented x3, Reflexes Normal Results - Vital Signs Recent Vital Signs: Last Vital Signs Temp 98.0 F 04/04/18 03:17 Pulse 56 L 04/04/18 03:17 Resp 16 04/04/18 03:17 BP 169/56 H 04/04/18 03:17 Pulse Ox 98 04/04/18 03:17 - Labs Result Diagrams: 04/04/18 11:50 04/04/18 11:50 Labs: Laboratory Results - last 24 hr 04/03/18 04/03/18 04/03/18 22:19 22:32 22:32 WBC 6.5 RBC 2.77 L Hgb 8.8 L Hct 26.0 L MCV 93.8 D MCH 31.7 H MCHC 33.8 RDW 14.1 Plt Count 162 MPV 9.4 Neut % (Auto) 65.8 Lymph % (Auto) 16.1 L [place] % (Auto) 11.0 H Eos % (Auto) 6.0 H Baso % (Auto) 1.1 Neut # (Auto) 4.3 Lymph # (Auto) 1.0 [place] # (Auto) 0.7 Eos # (Auto) 0.4 Baso # (Auto) 0.1 PT 11.7 INR 1.1 APTT 27 Sodium Potassium Chloride Carbon Dioxide Anion Gap BUN Creatinine Est GFR ( Amer) Est GFR (Non-Af Amer) POC Glucose (mg/dL) 335 H Random Glucose Calcium Total Bilirubin AST ALT Alkaline Phosphatase Troponin I NT-Pro-B Natriuret Pep Total Protein Albumin Globulin Albumin/Globulin Ratio 04/03/18 22:32 WBC RBC Hgb Hct MCV MCH MCHC RDW Plt Count MPV Neut % (Auto) Lymph % (Auto) [place] % (Auto) Eos % (Auto) Baso % (Auto) Neut # (Auto) Lymph # (Auto) [place] # (Auto) Eos # (Auto) Baso # (Auto) PT INR APTT Sodium 142 Potassium 4.8 Chloride 105 Carbon Dioxide 25 Anion Gap 17 BUN 48 H Creatinine 2.0 H Est GFR ( Amer) 41 Est GFR (Non-Af Amer) 34 POC Glucose (mg/dL) Random Glucose 299 H Calcium 9.4 Total Bilirubin 0.3 AST 29 ALT 30 Alkaline Phosphatase 100 Troponin I 0.0210 NT-Pro-B Natriuret Pep 3460 H Total Protein 7.3 Albumin 4.0 Globulin 3.3 Albumin/Globulin Ratio 1.2 Assessment & Plan (1) Diabetes Status: Acute (2) Foot infection Status: Acute (3) Peripheral vascular disease Status: Acute
[2018-04-04 06:49] LABS: CK-MB 5.44 ng/mL (0.0-3.38); TROPONIN I 0.029 ng/mL (0.00-0.120)
[2018-04-04] MEDS: (Novolog) Insulin Aspart, Recombinant 100 u/ml 10 ml vial SC SCH ×4 (07:35→21:39)
[2018-04-04] MEDS: Multiple Vitamins Tab PO SCH (09:57)
[2018-04-04] MEDS: Enoxaparin 40 mg Syringe SC SCH (09:58)
--- NOTE | 2018-04-04 11:32 | RAD ---
PROCEDURE: CHEST RADIOGRAPH, 1 VIEW HISTORY: chest pain COMPARISON: Chest radiographs 12/10/2017. FINDINGS: LUNGS: No acute pulmonary disease appreciated bilaterally. PLEURA: No pneumothorax or pleural fluid seen. CARDIOVASCULAR: Stable cardiomegaly with AICD/pacemaker again identified as well as sternotomy wires and prosthetic cardiac valve. OSSEOUS STRUCTURES: No significant abnormalities. VISUALIZED UPPER ABDOMEN: Normal. OTHER FINDINGS: None. IMPRESSION: No acute cardiopulmonary is appreciable. Cardiomegaly is stable. No pulmonary vascular congestion. Pacemaker and prosthetic valve again evident.
--- NOTE | 2018-04-04 11:34 | RAD ---
PROCEDURE: Left Foot Radiographs. HISTORY: toe pain COMPARISON: None. FINDINGS: BONES: No acute fracture or destructive bony lesion identified. JOINTS: No subluxation or dislocation identified. Variable degenerative changes seen throughout the joints of the forefoot hindfoot and midfoot which seen worst at the interphalangeal joints of the digits diffusely where joint space narrowing is quite prominent. SOFT TISSUES: Vascular calcification identified at the plantar and dorsal foot soft tissues as well as the ankle anteriorly and posteriorly. OTHER FINDINGS: None. IMPRESSION: No acute fracture or dislocation left foot. degenerative changes are seen diffusely throughout the left foot but are seen worse at the digits diffusely.
[2018-04-04 11:56] LABS: BASO # 0.1 K/uL (0.0-0.2); BASO % 1.1 % (0.0-2.0); EOS # 0.4 K/uL (0.0-0.7); EOS % 4.8 % (0.0-4.0); HEMOGLOBIN 9.5 g/dL (12.0-18.0); LYMPH # 0.9 K/uL (1.0-4.3); LYMPH % 11.7 % (20.0-40.0); MEAN CELL VOLUME 92.6 fL (80.0-94.0); MEAN CORPUSCULAR HGB CONC 34.5 g/dL (33.0-37.0); MEAN PLATELET VOLUME 9.3 fL (7.2-11.7); MONO # 0.6 K/uL (0.0-0.8); MONO % 8.1 % (0.0-10.0); NEUT # 5.8 K/uL (1.8-7.0); NEUT % 74.3 % (50.0-75.0); RBC 2.97 Mil/uL (4.40-5.90); RED CELL DISTRIBUTION WIDTH 13.9 % (11.5-14.5); WHITE BLOOD COUNT 7.8 K/uL (4.8-10.8)
[2018-04-04 12:13] LABS: ALB/GLOB RATIO 1.1 (1.0-2.1); ALBUMIN 3.8 g/dL (3.5-5.0); CALCIUM 9.5 mg/dl (8.6-10.4)
--- NOTE | 2018-04-05 07:35 | CP.PCM.PN ---
Subjective - Date & Time of Evaluation Date of Evaluation: 04/04/18 Time of Evaluation: 19:00 - Subjective Subjective: Pt seen and examined at bedside, still c/o left big toe pain and is started on antibiotics, wound care Objective - Vital Signs/Intake and Output Vital Signs (last 24 hours): Temp Pulse Resp BP Pulse Ox 98.5 F 62 16 167/62 H 94 L 04/05/18 04:00 04/05/18 04:00 04/05/18 04:00 04/05/18 04:00 04/05/18 04:00 Intake and Output: 04/05/18 04/05/18 06:59 18:59 Intake Total 180 Output Total 850 Balance -670 - Medications Medications: Current Medications Carvedilol (Coreg) 25 mg PO BID [facility] Last Admin: 04/04/18 17:36 Dose: 25 mg Clopidogrel Bisulfate (Plavix) 75 mg PO DAILY [facility] Last Admin: 04/04/18 09:57 Dose: 75 mg Enoxaparin Sodium (Lovenox) 40 mg SC DAILY [facility] Last Admin: 04/04/18 09:58 Dose: 40 mg Furosemide (Lasix) 40 mg PO BID [facility] Last Admin: 04/04/18 17:36 Dose: 40 mg Hydralazine HCl (Apresoline) 75 mg PO Q8 [facility] Last Admin: 04/05/18 06:18 Dose: 75 mg Insulin Aspart (Novolog) 0 unit SC [facility] PRN Reason: Protocol Last Admin: 04/04/18 21:39 Dose: Not Given Isosorbide Mononitrate (Imdur Er) 30 mg PO DAILY [facility] Last Admin: 04/04/18 10:03 Dose: 30 mg Multivitamins (Hexavitamin) 1 tab PO DAILY [facility] Last Admin: 04/04/18 09:57 Dose: 1 tab Rosuvastatin Calcium (Crestor) 20 mg PO HS [facility] Last Admin: 04/04/18 21:38 Dose: 20 mg - Labs Labs: 04/04/18 11:50 04/04/18 11:50 PT 11.7 SECONDS (9.7-12.2) 04/03/18 22:32 INR 1.1 04/03/18 22:32 APTT 27 SECONDS (21-34) 04/03/18 22:32 - Constitutional Appears: No Acute Distress - Head Exam Head Exam: ATRAUMATIC, NORMAL INSPECTION, NORMOCEPHALIC - Eye Exam Eye Exam: EOMI, Normal appearance, PERRL Pupil Exam: NORMAL ACCOMODATION, PERRL - Respiratory Exam Respiratory Exam: Decreased Breath Sounds, Rales, Rhonchi - Cardiovascular Exam Cardiovascular Exam: REGULAR RHYTHM, +S1, +S2. absent: Murmur - GI/Abdominal Exam GI & Abdominal Exam: Soft, Normal Bowel Sounds. absent: Tenderness Assessment and Plan (1) Diabetes Status: Acute (2) Foot infection Status: Acute (3) Peripheral vascular disease Status: Acute
--- NOTE | 2018-04-05 07:35 | CP.PCM.PN ---
Subjective - Date & Time of Evaluation Date of Evaluation: 04/05/18 Time of Evaluation: 19:00 - Subjective Subjective: Pt seen and examined at bedside, he is less short of breath, no cough, decreased chest pain, left big toe has dressing and being followed by podiatry Objective - Vital Signs/Intake and Output Vital Signs (last 24 hours): Temp Pulse Resp BP Pulse Ox 98.5 F 62 16 167/62 H 94 L 04/05/18 04:00 04/05/18 04:00 04/05/18 04:00 04/05/18 04:00 04/05/18 04:00 Intake and Output: 04/05/18 04/05/18 06:59 18:59 Intake Total 180 Output Total 850 Balance -670 - Medications Medications: Current Medications Carvedilol (Coreg) 25 mg PO BID [facility] Last Admin: 04/04/18 17:36 Dose: 25 mg Clopidogrel Bisulfate (Plavix) 75 mg PO DAILY [facility] Last Admin: 04/04/18 09:57 Dose: 75 mg Enoxaparin Sodium (Lovenox) 40 mg SC DAILY [facility] Last Admin: 04/04/18 09:58 Dose: 40 mg Furosemide (Lasix) 40 mg PO BID [facility] Last Admin: 04/04/18 17:36 Dose: 40 mg Hydralazine HCl (Apresoline) 75 mg PO Q8 [facility] Last Admin: 04/05/18 06:18 Dose: 75 mg Insulin Aspart (Novolog) 0 unit SC [facility] PRN Reason: Protocol Last Admin: 04/04/18 21:39 Dose: Not Given Isosorbide Mononitrate (Imdur Er) 30 mg PO DAILY [facility] Last Admin: 04/04/18 10:03 Dose: 30 mg Multivitamins (Hexavitamin) 1 tab PO DAILY [facility] Last Admin: 04/04/18 09:57 Dose: 1 tab Rosuvastatin Calcium (Crestor) 20 mg PO HS [facility] Last Admin: 04/04/18 21:38 Dose: 20 mg - Labs Labs: 04/04/18 11:50 04/04/18 11:50 PT 11.7 SECONDS (9.7-12.2) 04/03/18 22:32 INR 1.1 04/03/18 22:32 APTT 27 SECONDS (21-34) 04/03/18 22:32 Assessment and Plan (1) Diabetes Status: Acute (2) Foot infection Status: Acute (3) Peripheral vascular disease Status: Acute
[2018-04-05] MEDS: (Novolog) Insulin Aspart, Recombinant 100 u/ml 10 ml vial SC SCH ×4 (08:19→21:34)
[2018-04-05] MEDS: Enoxaparin 40 mg Syringe SC SCH (10:19)
[2018-04-05] MEDS: Multiple Vitamins Tab PO SCH (10:19)
--- NOTE | 2018-04-05 11:20 | CP.PCM.CON ---
<Trae Zhou - Last Filed: 04/05/18 11:30> History of Present Illness - History of Present Illness History of Present Illness: Podiatry Consult NOte- Dr. Joseph 62 y.o male with PMH of CHF, DM, HTN, aortic stenosis seen and evaluated at bedside with attending Dr. Joseph after being consulted left foot evaluation. Patient is seen resting comfortably in bed, in NAD, and awake. Patient reports pain to the left big toe. Patient denies nausea, fever, shortness of breath, chest pains or vomiting during the visitation Past Patient History - Tetanus Immunizations Tetanus Immunization: Unknown - Past Medical History & Family History Past Medical History?: Yes - Past Social History Smoking Status: Former Smoker - CARDIAC Hx Congestive Heart Failure: Yes Hx Hypercholesterolemia: Yes Hx Hypertension: Yes Hx Pacemaker: Yes Hx Peripheral Edema: Yes - HEENT Hx HEENT Problems: Yes (RETINAL BLEEDING) Hx Glaucoma: Yes - RENAL Hx Chronic Kidney Disease: No - HEMATOLOGICAL/ONCOLOGICAL Hx Anemia: Yes - INTEGUMENTARY Hx Dermatological Problems: No - MUSCULOSKELETAL/RHEUMATOLOGICAL Hx Arthritis: Yes - PSYCHIATRIC Hx Substance Use: No - SURGICAL HISTORY Hx Cholecystectomy: Yes Hx Coronary Artery Bypass Graft: Yes Hx Coronary Stent: Yes - ANESTHESIA Hx Anesthesia: Yes Hx Anesthesia Reactions: No Hx Malignant Hyperthermia: No Meds Allergies/Adverse Reactions: Allergies Allergy/AdvReac Type Severity Reaction Status Date / Time No Known Allergies Allergy Verified 04/03/18 21:51 - Medications Medications: Current Medications Carvedilol (Coreg) 25 mg PO BID [facility] Last Admin: 04/05/18 10:18 Dose: 25 mg Clopidogrel Bisulfate (Plavix) 75 mg PO DAILY [facility] Last Admin: 04/05/18 10:18 Dose: 75 mg Enoxaparin Sodium (Lovenox) 40 mg SC DAILY [facility] Last Admin: 04/05/18 10:19 Dose: 40 mg Furosemide (Lasix) 40 mg PO BID [facility] Last Admin: 04/05/18 10:18 Dose: 40 mg Hydralazine HCl (Apresoline) 75 mg PO Q8 [facility] Last Admin: 04/05/18 06:18 Dose: 75 mg Insulin Aspart (Novolog) 0 unit SC [facility] PRN Reason: Protocol Last Admin: 04/05/18 11:13 Dose: 2 unit Isosorbide Mononitrate (Imdur Er) 30 mg PO DAILY [facility] Last Admin: 04/05/18 10:19 Dose: 30 mg Metformin HCl (Glucophage) 500 mg PO BID [facility] Last Admin: 04/05/18 11:04 Dose: 500 mg Multivitamins (Hexavitamin) 1 tab PO DAILY [facility] Last Admin: 04/05/18 10:19 Dose: 1 tab Rosuvastatin Calcium (Crestor) 20 mg PO HS [facility] Last Admin: 04/04/18 21:38 Dose: 20 mg Physical Exam - Constitutional Appears: Well, Non-toxic, No Acute Distress - Extremities Exam Extremities exam: Negative for: calf tenderness Additional comments: VASC: DP and PT faintly palpable, BAG MACHINE ADJUSTER delayed to 4 seconds, temperature gradient WNL, pedal edema noted ORTHO: pain with palpation to the left hallux NEURO: gross sensation intact, protective sensation diminished DERM: avulsed nail to the left hallux with 80% of the nail plate detached from the nail bed, nail plate attached to proximal nail bed, wound on nail bed measuring approximately 1.5 cm x 1.5 cm x .1 cm with wound base mainly granular , erythema present, no odor, no drainage, no streaking, no probe to bone, no fluctanance, tunneling or undermining appreciated - Neurological Exam Neurological exam: Alert - Psychiatric Exam Psychiatric exam: Normal Affect, Normal Mood Results - Vital Signs Recent Vital Signs: Last Vital Signs Temp 98.9 F 04/05/18 09:52 Pulse 53 L 04/05/18 09:52 Resp 12 04/05/18 09:52 BP 138/49 L 04/05/18 10:18 Pulse Ox 100 04/05/18 09:52 - Labs Result Diagrams: 04/04/18 11:50 04/04/18 11:50 Labs: Laboratory Results - last 24 hr 04/04/18 04/04/18 04/04/18 11:50 11:50 12:10 WBC 7.8 RBC 2.97 L Hgb 9.5 L Hct 27.5 L MCV 92.6 MCH 32.0 H MCHC 34.5 RDW 13.9 Plt Count 154 MPV 9.3 Neut % (Auto) 74.3 Lymph % (Auto) 11.7 L Day % (Auto) 8.1 Eos % (Auto) 4.8 H Baso % (Auto) 1.1 Neut # (Auto) 5.8 Lymph # (Auto) 0.9 L Day # (Auto) 0.6 Eos # (Auto) 0.4 Baso # (Auto) 0.1 Sodium 142 Potassium 4.8 Chloride 104 Carbon Dioxide 27 Anion Gap 16 BUN 44 H Creatinine 1.8 H Est GFR ( Amer) 46 Est GFR (Non-Af Amer) 38 POC Glucose (mg/dL) 210 H Random Glucose 194 H Calcium 9.5 Total Bilirubin 0.5 AST 27 ALT 31 Alkaline Phosphatase 86 Total Protein 7.1 Albumin 3.8 Globulin 3.3 Albumin/Globulin Ratio 1.1 Triglycerides 115 Cholesterol 105 LDL Cholesterol Direct 47 HDL Cholesterol 36 04/04/18 04/04/18 04/05/18 16:08 21:35 07:40 WBC RBC Hgb Hct MCV MCH MCHC RDW Plt Count MPV Neut % (Auto) Lymph % (Auto) Day % (Auto) Eos % (Auto) Baso % (Auto) Neut # (Auto) Lymph # (Auto) Day # (Auto) Eos # (Auto) Baso # (Auto) Sodium Potassium Chloride Carbon Dioxide Anion Gap BUN Creatinine Est GFR ( Amer) Est GFR (Non-Af Amer) POC Glucose (mg/dL) 267 H 260 H 281 H Random Glucose Calcium Total Bilirubin AST ALT Alkaline Phosphatase Total Protein Albumin Globulin Albumin/Globulin Ratio Triglycerides Cholesterol LDL Cholesterol Direct HDL Cholesterol Assessment & Plan - Assessment and Plan (Free Text) Assessment: 62 y.o male with PMH of CHF, DM, HTN, aortic stenosis with left hallux nail avulsion Plan: Patient seen and evaluated with attending Dr. Joseph Labs, vitals reviewed Cleansed left hallux with betadine Applied betadine w2d dressing Left hallux nail debrided without incident Ordered Bactroban To be applied to the left hallux tomorrow Thank you for allowing us to participate in patient's care Will continue to follow while patient is in house <Xiang Joseph - Last Filed: 04/05/18 13:43> Meds - Medications Medications: Current Medications Carvedilol (Coreg) 25 mg PO BID [facility] Last Admin: 04/05/18 10:18 Dose: 25 mg Clopidogrel Bisulfate (Plavix) 75 mg PO DAILY [facility] Last Admin: 04/05/18 10:18 Dose: 75 mg Enoxaparin Sodium (Lovenox) 40 mg SC DAILY [facility] Last Admin: 04/05/18 10:19 Dose: 40 mg Furosemide (Lasix) 40 mg PO BID [facility] Last Admin: 04/05/18 10:18 Dose: 40 mg Hydralazine HCl (Apresoline) 75 mg PO Q8 [facility] Last Admin: 04/05/18 06:18 Dose: 75 mg Insulin Aspart (Novolog) 0 unit SC ACHS [facility] PRN Reason: Protocol Last Admin: 04/05/18 11:13 Dose: 2 unit Isosorbide Mononitrate (Imdur Er) 30 mg PO DAILY [facility] Last Admin: 04/05/18 10:19 Dose: 30 mg Metformin HCl (Glucophage) 500 mg PO BID [facility] Last Admin: 04/05/18 11:04 Dose: 500 mg Multivitamins (Hexavitamin) 1 tab PO DAILY [facility] Last Admin: 04/05/18 10:19 Dose: 1 tab Mupirocin (Bactroban Ointment) 1 gm TOP DAILY [facility] Rosuvastatin Calcium (Crestor) 20 mg PO HS [facility] Last Admin: 04/04/18 21:38 Dose: 20 mg Results - Vital Signs Recent Vital Signs: Last Vital Signs Temp 98.9 F 04/05/18 09:52 Pulse 53 L 04/05/18 09:52 Resp 12 04/05/18 09:52 BP 138/49 L 04/05/18 10:18 Pulse Ox 100 04/05/18 09:52 - Labs Result Diagrams: 04/04/18 11:50 04/04/18 11:50 Labs: Laboratory Results - last 24 hr 04/04/18 04/04/18 04/05/18 16:08 21:35 07:40 POC Glucose (mg/dL) 267 H 260 H 281 H 04/05/18 11:06 POC Glucose (mg/dL) 216 H Assessment & Plan - Assessment and Plan (Free Text) Plan: above noted and agree with above findings. pt seen at bedside with resident and evaluated. labs and chart reviewed and above treatment rendered./DR Janene Joseph
--- NOTE | 2018-04-05 22:59 | CP.PCM.CON ---
History of Present Illness - History of Present Illness History of Present Illness: 62 M with hx of systolic CHF admitted for Acute on Chronic systolic CHF Moderate s/p CABG (2013) s/p AICD Feels better after diuretic therapy Will continue current dose of Lasix Plavix, Statins, B blockers and will add CLARY (If Ok with renal) Past Patient History - Tetanus Immunizations Tetanus Immunization: Unknown - Past Medical History & Family History Past Medical History?: Yes - Past Social History Smoking Status: Former Smoker - CARDIAC Hx Congestive Heart Failure: Yes Hx Hypercholesterolemia: Yes Hx Hypertension: Yes Hx Pacemaker: Yes Hx Peripheral Edema: Yes - HEENT Hx HEENT Problems: Yes (RETINAL BLEEDING) Hx Glaucoma: Yes - RENAL Hx Chronic Kidney Disease: No - HEMATOLOGICAL/ONCOLOGICAL Hx Anemia: Yes - INTEGUMENTARY Hx Dermatological Problems: No - MUSCULOSKELETAL/RHEUMATOLOGICAL Hx Arthritis: Yes - PSYCHIATRIC Hx Substance Use: No - SURGICAL HISTORY Hx Cholecystectomy: Yes Hx Coronary Artery Bypass Graft: Yes Hx Coronary Stent: Yes - ANESTHESIA Hx Anesthesia: Yes Hx Anesthesia Reactions: No Hx Malignant Hyperthermia: No Meds Allergies/Adverse Reactions: Allergies Allergy/AdvReac Type Severity Reaction Status Date / Time No Known Allergies Allergy Verified 04/03/18 21:51 - Medications Medications: Current Medications Carvedilol (Coreg) 25 mg PO BID [facility] Last Admin: 04/05/18 17:26 Dose: 25 mg Clopidogrel Bisulfate (Plavix) 75 mg PO DAILY [facility] Last Admin: 04/05/18 10:18 Dose: 75 mg Enoxaparin Sodium (Lovenox) 40 mg SC DAILY [facility] Last Admin: 04/05/18 10:19 Dose: 40 mg Furosemide (Lasix) 40 mg PO BID [facility] Last Admin: 04/05/18 17:25 Dose: 40 mg Hydralazine HCl (Apresoline) 75 mg PO Q8 [facility] Last Admin: 04/05/18 21:48 Dose: 75 mg Insulin Aspart (Novolog) 0 unit SC [facility] PRN Reason: Protocol Last Admin: 04/05/18 21:34 Dose: Not Given Isosorbide Mononitrate (Imdur Er) 30 mg PO DAILY [facility] Last Admin: 04/05/18 10:19 Dose: 30 mg Metformin HCl (Glucophage) 500 mg PO BID [facility] Last Admin: 04/05/18 17:25 Dose: 500 mg Multivitamins (Hexavitamin) 1 tab PO DAILY [facility] Last Admin: 04/05/18 10:19 Dose: 1 tab Mupirocin (Bactroban Ointment) 1 gm TOP DAILY [facility] Rosuvastatin Calcium (Crestor) 20 mg PO [facility] Last Admin: 04/05/18 21:48 Dose: 20 mg Results - Vital Signs Recent Vital Signs: Last Vital Signs Temp 98.3 F 04/05/18 20:30 Pulse 79 04/05/18 21:30 Resp 11 L 04/05/18 21:30 BP 129/60 04/05/18 21:07 Pulse Ox 95 04/05/18 20:30 - Labs Result Diagrams: 04/04/18 11:50 04/04/18 11:50 Labs: Laboratory Results - last 24 hr 04/05/18 04/05/18 04/05/18 07:40 11:06 16:19 POC Glucose (mg/dL) 281 H 216 H 254 H 04/05/18 21:13 POC Glucose (mg/dL) 219 H
[2018-04-06] MEDS: (Novolog) Insulin Aspart, Recombinant 100 u/ml 10 ml vial SC SCH ×4 (08:04→21:27)
[2018-04-06] MEDS: Enoxaparin 40 mg Syringe SC SCH (09:54)
[2018-04-06] MEDS: Multiple Vitamins Tab PO SCH (09:55)
--- NOTE | 2018-04-06 12:43 | CP.PCM.PN ---
Subjective - Date & Time of Evaluation Date of Evaluation: 04/06/18 Time of Evaluation: 11:00 - Subjective Subjective: Podiatry Progress Note- Dr. Joseph 62 y.o male with PMH of CHF, DM, HTN, aortic stenosis seen and evaluated at bedside for left hallux wound secondary likely to traumatic nail avulsion. Patient is seen resting comfortably in bed, in NAD, and awake. Dressing clean, dry, intact without strikethrough. Patient reports no pain to the left big toe today. Patient denies nausea, fever, shortness of breath, chest pains or vomiting during the visitation. No new pedal complaints. Objective - Vital Signs/Intake and Output Vital Signs (last 24 hours): Temp Pulse Resp BP Pulse Ox 98.6 F 54 L 12 141/48 L 95 04/05/18 23:50 04/06/18 10:00 04/06/18 05:52 04/06/18 09:56 04/06/18 04:12 Intake and Output: 04/06/18 04/06/18 06:59 18:59 Intake Total 120 500 Output Total 550 Balance -430 500 - Medications Medications: Current Medications Carvedilol (Coreg) 25 mg PO BID [facility] Last Admin: 04/06/18 09:56 Dose: Not Given Clopidogrel Bisulfate (Plavix) 75 mg PO DAILY [facility] Last Admin: 04/06/18 09:54 Dose: 75 mg Enoxaparin Sodium (Lovenox) 40 mg SC DAILY [facility] Last Admin: 04/06/18 09:54 Dose: 40 mg Furosemide (Lasix) 40 mg PO BID [facility] Last Admin: 04/06/18 09:55 Dose: 40 mg Hydralazine HCl (Apresoline) 75 mg PO Q8 [facility] Last Admin: 04/06/18 06:04 Dose: 75 mg Insulin Aspart (Novolog) 0 unit SC [facility] PRN Reason: Protocol Last Admin: 04/06/18 11:51 Dose: 5 unit Isosorbide Mononitrate (Imdur Er) 30 mg PO DAILY [facility] Last Admin: 04/06/18 09:55 Dose: 30 mg Metformin HCl (Glucophage) 500 mg PO BID [facility] Last Admin: 04/06/18 09:55 Dose: 500 mg Multivitamins (Hexavitamin) 1 tab PO DAILY [facility] Last Admin: 04/06/18 09:55 Dose: 1 tab Mupirocin (Bactroban Ointment) 1 gm TOP DAILY [facility] Last Admin: 04/06/18 09:55 Dose: 1 gm Rosuvastatin Calcium (Crestor) 20 mg PO HS [facility] Last Admin: 04/05/18 21:48 Dose: 20 mg - Labs Labs: 04/04/18 11:50 04/04/18 11:50 PT 11.7 SECONDS (9.7-12.2) 04/03/18 22:32 INR 1.1 04/03/18 22:32 APTT 27 SECONDS (21-34) 04/03/18 22:32 - Constitutional Appears: Well, Non-toxic, No Acute Distress - Extremities Exam Extremities Exam: absent: Calf Tenderness Additional comments: VASC: DP and PT faintly palpable, BIOMEDICAL ENGINEER delayed to 4 seconds, temperature gradient WNL, pedal edema noted ORTHO: pain with palpation to the left hallux NEURO: gross sensation intact, protective sensation diminished DERM: wound measuring approximately 1.5 cm x 1.5 cm x .1 cm with wound base mainly granular, erythema present, no odor, no drainage, no streaking, no probe to bone, no fluctanance, tunneling or undermining appreciated - Neurological Exam Neurological Exam: Alert, Awake, Oriented x3 - Psychiatric Exam Psychiatric exam: Normal Affect, Normal Mood Assessment and Plan - Assessment and Plan (Free Text) Assessment: 62 y.o male with PMH of CHF, DM, HTN, aortic stenosis with left hallux wound secondary to likely traumatic hallux nail avulsion- no infection Plan: Patient seen and evaluated with attending Dr. Joseph Labs, vitals reviewed (afebrile, absent leukocytosis) Cleansed left hallux with saline solution Applied bactroban and dsd Thank you for allowing us to participate in patient's care Upon discharge, patient to follow up with Dr. Joseph in wound care clinic Will continue to follow while patient is in house
--- NOTE | 2018-04-06 16:34 | CP.PCM.PN ---
Subjective - Date & Time of Evaluation Date of Evaluation: 04/06/18 Time of Evaluation: 13:05 - Subjective Subjective: Pastient seen and evaluated Denies chest pain and dyspnea CAD s/p CABG systolic CHF Pedal edema Moderate Medical management Objective - Vital Signs/Intake and Output Vital Signs (last 24 hours): Temp Pulse Resp BP Pulse Ox 98.4 F 57 L 13 139/50 L 95 04/06/18 08:00 04/06/18 14:30 04/06/18 14:30 04/06/18 14:30 04/06/18 04:12 Intake and Output: 04/06/18 04/06/18 06:59 18:59 Intake Total 120 500 Output Total 550 Balance -430 500 - Medications Medications: Current Medications Carvedilol (Coreg) 25 mg PO BID [facility] Last Admin: 04/06/18 09:56 Dose: Not Given Clopidogrel Bisulfate (Plavix) 75 mg PO DAILY [facility] Last Admin: 04/06/18 09:54 Dose: 75 mg Enoxaparin Sodium (Lovenox) 40 mg SC DAILY [facility] Last Admin: 04/06/18 09:54 Dose: 40 mg Furosemide (Lasix) 40 mg PO BID [facility] Last Admin: 04/06/18 09:55 Dose: 40 mg Hydralazine HCl (Apresoline) 75 mg PO Q8 [facility] Last Admin: 04/06/18 06:04 Dose: 75 mg Insulin Aspart (Novolog) 0 unit SC [facility] PRN Reason: Protocol Last Admin: 04/06/18 11:51 Dose: 5 unit Isosorbide Mononitrate (Imdur Er) 30 mg PO DAILY [facility] Last Admin: 04/06/18 09:55 Dose: 30 mg Metformin HCl (Glucophage) 500 mg PO BID [facility] Last Admin: 04/06/18 09:55 Dose: 500 mg Multivitamins (Hexavitamin) 1 tab PO DAILY [facility] Last Admin: 04/06/18 09:55 Dose: 1 tab Mupirocin (Bactroban Ointment) 1 gm TOP DAILY [facility] Last Admin: 04/06/18 09:55 Dose: 1 gm Rosuvastatin Calcium (Crestor) 20 mg PO HS [facility] Last Admin: 04/05/18 21:48 Dose: 20 mg - Labs Labs: 04/04/18 11:50 05/26/18 11:50 PT 11.7 SECONDS (9.7-12.2) 04/03/18 22:32 INR 1.1 04/03/18 22:32 APTT 27 SECONDS (21-34) 04/03/18 22:32
--- NOTE | 2018-04-06 22:32 | CP.PCM.PN ---
Subjective - Date & Time of Evaluation Date of Evaluation: 04/06/18 Time of Evaluation: 17:45 - Subjective Subjective: Pt is seen and examined in ICU, he is less short of breath, no cough, decreased chest pain, left big toe has dressing and being followed by podiatry Objective - Vital Signs/Intake and Output Vital Signs (last 24 hours): Temp Pulse Resp BP Pulse Ox 97.8 F 57 L 23 173/58 H 100 04/06/18 20:28 04/06/18 20:22 04/06/18 20:00 04/06/18 17:52 04/06/18 21:22 Intake and Output: 04/06/18 04/07/18 18:59 06:59 Intake Total 800 Output Total 800 Balance 0 - Medications Medications: Current Medications Carvedilol (Coreg) 25 mg PO BID [facility] Last Admin: 04/06/18 18:00 Dose: Not Given Clopidogrel Bisulfate (Plavix) 75 mg PO DAILY [facility] Last Admin: 04/06/18 09:54 Dose: 75 mg Enoxaparin Sodium (Lovenox) 40 mg SC DAILY [facility] Last Admin: 04/06/18 09:54 Dose: 40 mg Furosemide (Lasix) 40 mg PO BID [facility] Last Admin: 04/06/18 17:08 Dose: 40 mg Hydralazine HCl (Apresoline) 75 mg PO Q8 [facility] Last Admin: 04/06/18 21:30 Dose: 75 mg Insulin Aspart (Novolog) 0 unit SC [facility] PRN Reason: Protocol Last Admin: 04/06/18 21:27 Dose: Not Given Isosorbide Mononitrate (Imdur Er) 30 mg PO DAILY [facility] Last Admin: 04/06/18 09:55 Dose: 30 mg Metformin HCl (Glucophage) 500 mg PO BID [facility] Last Admin: 04/06/18 17:08 Dose: 500 mg Multivitamins (Hexavitamin) 1 tab PO DAILY [facility] Last Admin: 04/06/18 09:55 Dose: 1 tab Mupirocin (Bactroban Ointment) 1 gm TOP DAILY [facility] Last Admin: 04/06/18 09:55 Dose: 1 gm Rosuvastatin Calcium (Crestor) 20 mg PO HS [facility] Last Admin: 04/06/18 21:30 Dose: 20 mg - Labs Labs: 04/04/18 11:50 04/04/18 11:50 PT 11.7 SECONDS (9.7-12.2) 04/03/18 22:32 INR 1.1 04/03/18 22:32 APTT 27 SECONDS (21-34) 04/03/18 22:32 - Constitutional Appears: No Acute Distress - Head Exam Head Exam: ATRAUMATIC, NORMAL INSPECTION, NORMOCEPHALIC - Eye Exam Eye Exam: EOMI, Normal appearance, PERRL Pupil Exam: NORMAL ACCOMODATION, PERRL - Respiratory Exam Respiratory Exam: Decreased Breath Sounds, Rales, Rhonchi - Cardiovascular Exam Cardiovascular Exam: REGULAR RHYTHM, +S1, +S2. absent: Murmur - GI/Abdominal Exam GI & Abdominal Exam: Soft, Normal Bowel Sounds. absent: Tenderness Assessment and Plan (1) Diabetes Status: Acute (2) Foot infection Status: Acute (3) Peripheral vascular disease Status: Acute - Assessment and Plan (Free Text) Plan: cardiology follow up to assess for aortic stenosis podiatry follow up
[2018-04-07] MEDS: (Novolog) Insulin Aspart, Recombinant 100 u/ml 10 ml vial SC SCH ×4 (08:30→21:09)
[2018-04-07] MEDS: Multiple Vitamins Tab PO SCH (09:45)
[2018-04-07] MEDS: Enoxaparin 40 mg Syringe SC SCH (09:46)
--- NOTE | 2018-04-07 14:18 | CARD ---
APPROVED REPORT EKG Measurement Heart [id number] <Conclusion> Sinus rhythm with marked sinus arrhythmia Possible Left atrial enlargement T wave abnormality, consider lateral ischemia Abnormal ECG
--- NOTE | 2018-04-07 17:16 | CP.PCM.PN ---
Subjective - Date & Time of Evaluation Date of Evaluation: 04/07/18 Time of Evaluation: 13:05 - Subjective Subjective: Patient seen and evaluated denies chest pain and dyspnea Objective - Vital Signs/Intake and Output Vital Signs (last 24 hours): Temp Pulse Resp BP Pulse Ox 97.9 F 63 20 135/70 98 04/07/18 15:15 04/07/18 15:15 04/07/18 15:15 04/07/18 17:06 04/07/18 15:15 Intake and Output: 04/07/18 04/07/18 06:59 18:59 Intake Total 300 Output Total 900 Balance -600 - Medications Medications: Current Medications Carvedilol (Coreg) 25 mg PO BID [facility] Last Admin: 04/07/18 17:06 Dose: 25 mg Clopidogrel Bisulfate (Plavix) 75 mg PO DAILY [facility] Last Admin: 04/07/18 09:44 Dose: 75 mg Enoxaparin Sodium (Lovenox) 40 mg SC DAILY [facility] Last Admin: 04/07/18 09:46 Dose: 40 mg Furosemide (Lasix) 40 mg PO BID [facility] Last Admin: 04/07/18 17:06 Dose: 40 mg Hydralazine HCl (Apresoline) 75 mg PO Q8 [facility] Last Admin: 04/07/18 13:25 Dose: 75 mg Insulin Aspart (Novolog) 0 unit [facility] PRN Reason: Protocol Last Admin: 04/07/18 17:07 Dose: 5 unit Isosorbide Mononitrate (Imdur Er) 30 mg PO DAILY [facility] Last Admin: 04/07/18 09:46 Dose: 30 mg Metformin HCl (Glucophage) 500 mg PO BID [facility] Last Admin: 04/07/18 17:06 Dose: 500 mg Multivitamins (Hexavitamin) 1 tab PO DAILY [facility] Last Admin: 04/07/18 09:45 Dose: 1 tab Mupirocin (Bactroban Ointment) 1 gm TOP DAILY [facility] Last Admin: 04/07/18 09:46 Dose: 1 gm Rosuvastatin Calcium (Crestor) 20 mg PO HS [facility] Last Admin: 04/06/18 21:30 Dose: 20 mg - Labs Labs: 04/04/18 11:50 04/04/18 11:50 PT 11.7 SECONDS (9.7-12.2) 04/03/18 22:32 INR 1.1 04/03/18 22:32 APTT 27 SECONDS (21-34) 04/03/18 22:32 - Head Exam Head Exam: ATRAUMATIC, NORMAL INSPECTION - Eye Exam Eye Exam: EOMI, Normal appearance Pupil Exam: NORMAL ACCOMODATION, PERRL - ENT Exam ENT Exam: Mucous Membranes Moist, Normal Exam - Neck Exam Neck Exam: Full ROM, Normal Inspection - Respiratory Exam Respiratory Exam: Clear to Ausculation Bilateral, NORMAL BREATHING PATTERN - Cardiovascular Exam Cardiovascular Exam: REGULAR RHYTHM, +S1, +S2 - GI/Abdominal Exam GI & Abdominal Exam: Soft, Normal Bowel Sounds - Extremities Exam Extremities Exam: Full ROM, Normal Capillary Refill - Back Exam Back Exam: NORMAL INSPECTION - Neurological Exam Neurological Exam: Alert, Awake, CN II-XII Intact - Psychiatric Exam Psychiatric exam: Normal Affect - Skin Skin Exam: Dry, Warm Assessment and Plan - Assessment and Plan (Free Text) Assessment: 1. CAD s/p CABG 2. systolic CHF s/p AICD 3. HTN controlled 4. moderate Check repeat labs
--- NOTE | 2018-04-07 22:57 | CP.PCM.PN ---
Subjective - Date & Time of Evaluation Date of Evaluation: 04/07/18 Time of Evaluation: 19:00 - Subjective Subjective: PT SEEN AND EXAMINED TODAY, no chest pain, taycardia, shortness of breath, improving Objective - Vital Signs/Intake and Output Vital Signs (last 24 hours): Temp Pulse Resp BP Pulse Ox 97.9 F 63 20 135/70 98 04/07/18 15:15 04/07/18 17:15 04/07/18 15:15 04/07/18 17:06 04/07/18 15:15 - Medications Medications: Current Medications Carvedilol (Coreg) 25 mg PO BID [facility] Last Admin: 04/07/18 17:06 Dose: 25 mg Clopidogrel Bisulfate (Plavix) 75 mg PO DAILY [facility] Last Admin: 04/07/18 09:44 Dose: 75 mg Enoxaparin Sodium (Lovenox) 40 mg SC DAILY [facility] Last Admin: 04/07/18 09:46 Dose: 40 mg Furosemide (Lasix) 40 mg PO BID [facility] Last Admin: 04/07/18 17:06 Dose: 40 mg Hydralazine HCl (Apresoline) 75 mg PO Q8 [facility] Last Admin: 04/07/18 21:09 Dose: 75 mg Insulin Aspart (Novolog) [address] [facility] PRN Reason: Protocol Last Admin: 04/07/18 21:09 Dose: Not Given Isosorbide Mononitrate (Imdur Er) 30 mg PO DAILY [facility] Last Admin: 04/07/18 09:46 Dose: 30 mg Metformin HCl (Glucophage) 500 mg PO BID [facility] Last Admin: 04/07/18 17:06 Dose: 500 mg Multivitamins (Hexavitamin) 1 tab PO DAILY [facility] Last Admin: 04/07/18 09:45 Dose: 1 tab Mupirocin (Bactroban Ointment) 1 gm TOP DAILY [facility] Last Admin: 04/07/18 09:46 Dose: 1 gm Rosuvastatin Calcium (Crestor) 20 mg PO HS [facility] Last Admin: 04/07/18 21:09 Dose: 20 mg - Labs Labs: 04/04/18 11:50 04/04/18 11:50 PT 11.7 SECONDS (9.7-12.2) 04/03/18 22:32 INR 1.1 04/03/18 22:32 APTT 27 SECONDS (21-34) 04/03/18 22:32 Assessment and Plan (1) Diabetes Status: Acute (2) Foot infection Status: Acute (3) Peripheral vascular disease Status: Acute
[2018-04-08 06:26] LABS: HEMOGLOBIN 9.3 g/dL (12.0-18.0); MEAN CORPUSCULAR HEMOGLOBIN 31.5 pg (27.0-31.0); MEAN CORPUSCULAR HGB CONC 33.9 g/dL (33.0-37.0); RBC 2.94 Mil/uL (4.40-5.90); RED CELL DISTRIBUTION WIDTH 13.7 % (11.5-14.5); WHITE BLOOD COUNT 8.7 K/uL (4.8-10.8)
[2018-04-08 06:45] LABS: CALCIUM 9.5 mg/dl (8.6-10.4)
[2018-04-08] MEDS: (Novolog) Insulin Aspart, Recombinant 100 u/ml 10 ml vial SC SCH ×4 (08:30→22:28)
[2018-04-08] MEDS: Multiple Vitamins Tab PO SCH (09:10)
[2018-04-08] MEDS: Enoxaparin 40 mg Syringe SC SCH (09:10)
--- NOTE | 2018-04-08 12:18 | CP.PCM.PN ---
Subjective - Date & Time of Evaluation Date of Evaluation: 04/08/18 Time of Evaluation: 12:15 - Subjective Subjective: Podiatry Progress Note- Dr. Joseph 62 y.o male seen and evaluated at bedside for left hallux wound secondary to traumatic nail avulsion. Patient is seen resting comfortably in bed, in NAD, and awake. Dressing clean, dry, intact without strikethrough. Patient reports no pain to the left big toe today. Patient denies nausea, fever, shortness of breath, chest pains or vomiting during the visitation. No new pedal complaints. Objective - Vital Signs/Intake and Output Vital Signs (last 24 hours): Temp Pulse Resp BP Pulse Ox 98.1 F 81 18 161/63 H 97 04/08/18 07:00 04/08/18 09:10 04/08/18 07:00 04/08/18 09:10 04/08/18 07:00 Intake and Output: 04/08/18 04/08/18 06:59 18:59 Intake Total 240 Output Total 600 Balance -360 - Medications Medications: Current Medications Carvedilol (Coreg) 25 mg PO BID [facility] Last Admin: 04/08/18 09:10 Dose: 25 mg Clopidogrel Bisulfate (Plavix) 75 mg PO DAILY [facility] Last Admin: 04/08/18 09:08 Dose: 75 mg Enoxaparin Sodium (Lovenox) 40 mg SC DAILY [facility] Last Admin: 04/08/18 09:10 Dose: 40 mg Furosemide (Lasix) 40 mg PO BID [facility] Last Admin: 04/08/18 09:10 Dose: 40 mg Hydralazine HCl (Apresoline) 75 mg PO Q8 [facility] Last Admin: 04/08/18 06:06 Dose: 75 mg Insulin Aspart (Novolog) 0 unit SC [facility] PRN Reason: Protocol Last Admin: 04/08/18 08:30 Dose: 2 unit Isosorbide Mononitrate (Imdur Er) 30 mg PO DAILY [facility] Last Admin: 04/08/18 09:09 Dose: 30 mg Metformin HCl (Glucophage) 850 mg PO BID [facility] Last Admin: 04/08/18 09:08 Dose: 850 mg Multivitamins (Hexavitamin) 1 tab PO DAILY [facility] Last Admin: 04/08/18 09:10 Dose: 1 tab Mupirocin (Bactroban Ointment) 1 gm TOP DAILY [facility] Last Admin: 04/08/18 09:11 Dose: 1 gm Rosuvastatin Calcium (Crestor) 20 mg PO HS [facility] Last Admin: 04/07/18 21:09 Dose: 20 mg - Labs Labs: 04/08/18 06:17 04/08/18 06:17 PT 11.7 SECONDS (9.7-12.2) 04/03/18 22:32 INR 1.1 04/03/18 22:32 APTT 27 SECONDS (21-34) 04/03/18 22:32 - Constitutional Appears: Well, Non-toxic, No Acute Distress - Extremities Exam Additional comments: VASC: DP and PT faintly palpable, YARD JOCKEY delayed to 4 seconds, temperature gradient WNL, pedal edema noted ORTHO: pain with palpation to the left hallux NEURO: gross sensation intact, protective sensation diminished DERM: halluca nailbed wound measuring approximately 1.5 cm x 1.5 cm x .1 cm with wound base mainly granular, mild erythema present, no odor, no drainage, no streaking, no probe to bone, no fluctuance,no tunneling or undermining appreciated, no acute clinical signs of infection noted at this time - Neurological Exam Neurological Exam: Alert, Awake, Oriented x3 - Psychiatric Exam Psychiatric exam: Normal Affect, Normal Mood Assessment and Plan - Assessment and Plan (Free Text) Assessment: 62 y.o male seen at bedside regarding left hallux wound secondary to traumatic hallux nail avulsion, without infection Plan: Patient seen and evaluated discussed in detail with attending Dr. Joseph Labs, vitals reviewed (afebrile, WBC 8.7) Cleansed left hallux with saline solution Applied betadine and dsd Upon discharge, patient to follow up with Dr. Joseph in wound care clinic Will continue to follow while patient is in house
--- NOTE | 2018-04-08 23:47 | CP.PCM.PN ---
Subjective - Date & Time of Evaluation Date of Evaluation: 04/08/18 Time of Evaluation: 18:30 - Subjective Subjective: Pt seen and evaluated at bedside, feeling better, blood pressure and blood sugars were high, measures taken and its coming down Objective - Vital Signs/Intake and Output Vital Signs (last 24 hours): Temp Pulse Resp BP Pulse Ox 97.7 F 60 20 168/64 H 96 04/08/18 15:10 04/08/18 21:52 04/08/18 15:10 04/08/18 21:52 04/08/18 15:10 Intake and Output: 04/08/18 04/09/18 18:59 06:59 Intake Total 740 320 Output Total 600 580 Balance 140 -260 - Medications Medications: Current Medications Carvedilol (Coreg) 25 mg PO BID [facility] Last Admin: 04/08/18 17:47 Dose: 25 mg Clopidogrel Bisulfate (Plavix) 75 mg PO DAILY [facility] Last Admin: 04/08/18 09:08 Dose: 75 mg Enoxaparin Sodium (Lovenox) 40 mg SC DAILY [facility] Last Admin: 04/08/18 09:10 Dose: 40 mg Furosemide (Lasix) 40 mg PO DAILY [facility] Hydralazine HCl (Apresoline) 100 mg PO Q8H [facility] Last Admin: 04/08/18 21:50 Dose: 100 mg Insulin Aspart (Novolog) 0 unit SC [facility] PRN Reason: Protocol Last Admin: 04/08/18 22:28 Dose: Not Given Isosorbide Mononitrate (Imdur Er) 30 mg PO DAILY [facility] Last Admin: 04/08/18 09:09 Dose: 30 mg Metformin HCl (Glucophage) 850 mg PO BID [facility] Last Admin: 04/08/18 19:10 Dose: 850 mg Multivitamins (Hexavitamin) 1 tab PO DAILY [facility] Last Admin: 04/08/18 09:10 Dose: 1 tab Mupirocin (Bactroban Ointment) 1 gm TOP DAILY [facility] Last Admin: 04/08/18 09:11 Dose: 1 gm Rosuvastatin Calcium (Crestor) 20 mg PO HS [facility] Last Admin: 04/08/18 21:50 Dose: 20 mg - Labs Labs: 04/08/18 06:17 04/08/18 06:17 PT 11.7 SECONDS (9.7-12.2) 04/03/18 22:32 INR 1.1 04/03/18 22:32 APTT 27 SECONDS (21-34) 04/03/18 22:32 - Constitutional Appears: No Acute Distress - Head Exam Head Exam: ATRAUMATIC, NORMAL INSPECTION, NORMOCEPHALIC - Eye Exam Eye Exam: EOMI - Neck Exam Neck Exam: Full ROM, Normal Inspection. absent: Lymphadenopathy - Respiratory Exam Respiratory Exam: Clear to Ausculation Bilateral, NORMAL BREATHING PATTERN - Neurological Exam Neurological Exam: Alert, Awake, CN II-XII Intact, Normal Gait, Oriented x3 - Psychiatric Exam Psychiatric exam: Normal Affect, Normal Mood Assessment and Plan (1) Diabetes Status: Acute (2) Foot infection Status: Acute (3) Peripheral vascular disease Status: Acute
--- NOTE | 2018-04-09 04:55 | CP.PCM.PN ---
Subjective - Date & Time of Evaluation Date of Evaluation: 04/08/18 Time of Evaluation: 22:00 - Subjective Subjective: Patient seen and evaluated Denies chest pain and dyspnea Physical examination - Constitutional Appears: No Acute Distress - Head Exam Head Exam: ATRAUMATIC, NORMAL INSPECTION, NORMOCEPHALIC - Eye Exam Eye Exam: EOMI - Neck Exam Neck Exam: Full ROM, Normal Inspection. absent: Lymphadenopathy - Respiratory Exam Respiratory Exam: Clear to Ausculation Bilateral, NORMAL BREATHING PATTERN - Neurological Exam Neurological Exam: Alert, Awake, CN II-XII Intact, Normal Gait, Oriented x3 - Psychiatric Exam Psychiatric exam: Normal Affect, Normal Mood Objective - Vital Signs/Intake and Output Vital Signs (last 24 hours): Temp Pulse Resp BP Pulse Ox 98.5 F 59 L 20 155/63 H 97 04/08/18 23:15 04/08/18 23:15 04/08/18 23:15 04/08/18 23:15 04/08/18 23:15 Intake and Output: 04/08/18 04/09/18 18:59 06:59 Intake Total 740 320 Output Total 600 580 Balance 140 -260 - Medications Medications: Current Medications Carvedilol (Coreg) 25 mg PO BID [facility] Last Admin: 04/08/18 17:47 Dose: 25 mg Clopidogrel Bisulfate (Plavix) 75 mg PO DAILY [facility] Last Admin: 04/08/18 09:08 Dose: 75 mg Enoxaparin Sodium (Lovenox) 40 mg SC DAILY [facility] Last Admin: 04/08/18 09:10 Dose: 40 mg Furosemide (Lasix) 40 mg PO DAILY [facility] Hydralazine HCl (Apresoline) 100 mg PO Q8H [facility] Last Admin: 04/09/18 03:14 Dose: 100 mg Insulin Aspart (Novolog) 0 unit SC [facility] PRN Reason: Protocol Last Admin: 04/08/18 22:28 Dose: Not Given Isosorbide Mononitrate (Imdur Er) 30 mg PO DAILY [facility] Last Admin: 04/08/18 09:09 Dose: 30 mg Metformin HCl (Glucophage) 850 mg PO BID [facility] Last Admin: 04/08/18 19:10 Dose: 850 mg Multivitamins (Hexavitamin) 1 tab PO DAILY [facility] Last Admin: 04/08/18 09:10 Dose: 1 tab Mupirocin (Bactroban Ointment) 1 gm TOP DAILY [facility] Last Admin: 04/08/18 09:11 Dose: 1 gm Rosuvastatin Calcium (Crestor) 20 mg PO HS [facility] Last Admin: 04/08/18 21:50 Dose: 20 mg - Labs Labs: 04/08/18 06:17 04/08/18 06:17 PT 11.7 SECONDS (9.7-12.2) 04/03/18 22:32 INR 1.1 04/03/18 22:32 APTT 27 SECONDS (21-34) 04/03/18 22:32 Assessment and Plan - Assessment and Plan (Free Text) Assessment: 1. CAD s/p CABG 2. systolic CHF s/p AICD 3. HTN controlled 4. moderate
[2018-04-09] MEDS: (Novolog) Insulin Aspart, Recombinant 100 u/ml 10 ml vial SC SCH ×4 (08:29→21:41)
[2018-04-09] MEDS: Multiple Vitamins Tab PO SCH (09:59)
[2018-04-09] MEDS: Enoxaparin 40 mg Syringe SC SCH (10:01)
[2018-04-09 17:39] VITALS: RESP 20
--- NOTE | 2018-04-09 20:42 | CP.PCM.PN ---
Subjective - Date & Time of Evaluation Date of Evaluation: 04/09/18 Time of Evaluation: 11:05 - Subjective Subjective: Patient seen and evaluated Denies chest pain and dyspnea Physical examination - Constitutional Appears: No Acute Distress - Head Exam Head Exam: ATRAUMATIC, NORMAL INSPECTION, NORMOCEPHALIC - Eye Exam Eye Exam: EOMI - Neck Exam Neck Exam: Full ROM, Normal Inspection. absent: Lymphadenopathy - Respiratory Exam Respiratory Exam: Clear to Ausculation Bilateral, NORMAL BREATHING PATTERN - Neurological Exam Neurological Exam: Alert, Awake, CN II-XII Intact, Normal Gait, Oriented x3 - Psychiatric Exam Psychiatric exam: Normal Affect, Normal Mood Objective - Vital Signs/Intake and Output Vital Signs (last 24 hours): Temp Pulse Resp BP Pulse Ox 97.6 F 63 20 158/59 H 98 04/09/18 15:00 04/09/18 17:49 04/09/18 15:00 04/09/18 17:48 04/09/18 15:00 - Medications Medications: Current Medications Carvedilol (Coreg) 25 mg PO BID [facility] Last Admin: 04/09/18 17:48 Dose: 25 mg Clopidogrel Bisulfate (Plavix) 75 mg PO DAILY [facility] Last Admin: 04/09/18 09:59 Dose: 75 mg Enoxaparin Sodium (Lovenox) 40 mg SC DAILY [facility] Last Admin: 04/09/18 10:01 Dose: 40 mg Furosemide (Lasix) 40 mg PO DAILY [facility] Last Admin: 04/09/18 09:59 Dose: 40 mg Hydralazine HCl (Apresoline) 100 mg PO Q8H [facility] Last Admin: 04/09/18 11:14 Dose: 100 mg Insulin Aspart (Novolog) 0 unit SC [facility] PRN Reason: Protocol Last Admin: 04/09/18 17:46 Dose: 2 unit Isosorbide Mononitrate (Imdur Er) 30 mg PO DAILY [facility] Last Admin: 04/09/18 09:59 Dose: 30 mg Metformin HCl (Glucophage) 500 mg PO BID [facility] Last Admin: 04/09/18 17:47 Dose: 500 mg Multivitamins (Hexavitamin) 1 tab PO DAILY [facility] Last Admin: 04/09/18 09:59 Dose: 1 tab Mupirocin (Bactroban Ointment) 1 gm TOP DAILY [facility] Last Admin: 04/09/18 10:00 Dose: 1 gm Rosuvastatin Calcium (Crestor) 20 mg PO [facility] Last Admin: 04/08/18 21:50 Dose: 20 mg Sitagliptin Phosphate (Januvia) 50 mg PO DAILY [facility] Last Admin: 04/09/18 12:13 Dose: 50 mg - Labs Labs: 04/08/18 06:17 04/08/18 06:17 PT 11.7 SECONDS (9.7-12.2) 04/03/18 22:32 INR 1.1 04/03/18 22:32 APTT 27 SECONDS (21-34) 04/03/18 22:32 Assessment and Plan - Assessment and Plan (Free Text) Assessment: 1. CAD s/p CABG 2. systolic CHF s/p AICD 3. HTN controlled 4. moderate Stable
--- NOTE | 2018-04-09 23:07 | CP.PCM.PN ---
Subjective - Date & Time of Evaluation Date of Evaluation: 04/09/18 Time of Evaluation: 19:00 - Subjective Subjective: Pt seen and examined at bedside, Pt is less short of breath, no tacycardua, chest pain, no nausea, vomitting Objective - Vital Signs/Intake and Output Vital Signs (last 24 hours): Temp Pulse Resp BP Pulse Ox 97.6 F 73 20 150/54 L 98 04/09/18 15:00 04/09/18 21:40 04/09/18 15:00 04/09/18 21:40 04/09/18 15:00 Intake and Output: 04/09/18 04/10/18 18:59 06:59 Intake Total 320 Balance 320 - Medications Medications: Current Medications Carvedilol (Coreg) 25 mg PO BID [facility] Last Admin: 04/09/18 17:48 Dose: 25 mg Clopidogrel Bisulfate (Plavix) 75 mg PO DAILY [facility] Last Admin: 04/09/18 09:59 Dose: 75 mg Enoxaparin Sodium (Lovenox) 40 mg SC DAILY [facility] Last Admin: 04/09/18 10:01 Dose: 40 mg Furosemide (Lasix) 40 mg PO DAILY [facility] Last Admin: 04/09/18 09:59 Dose: 40 mg Hydralazine HCl (Apresoline) 100 mg PO Q8H [facility] Last Admin: 04/09/18 21:40 Dose: 100 mg Insulin Aspart (Novolog) 0 unit SC [facility] PRN Reason: Protocol Last Admin: 04/09/18 21:41 Dose: Not Given Isosorbide Mononitrate (Imdur Er) 30 mg PO DAILY [facility] Last Admin: 04/09/18 09:59 Dose: 30 mg Metformin HCl (Glucophage) 500 mg PO BID [facility] Last Admin: 04/09/18 17:47 Dose: 500 mg Multivitamins (Hexavitamin) 1 tab PO DAILY [facility] Last Admin: 04/09/18 09:59 Dose: 1 tab Mupirocin (Bactroban Ointment) 1 gm TOP DAILY [facility] Last Admin: 04/09/18 10:00 Dose: 1 gm Rosuvastatin Calcium (Crestor) 20 mg PO HS [facility] Last Admin: 04/09/18 21:40 Dose: 20 mg Sitagliptin Phosphate (Januvia) 50 mg PO DAILY [facility] Last Admin: 04/09/18 12:13 Dose: 50 mg - Labs Labs: 04/08/18 06:17 04/08/18 06:17 PT 11.7 SECONDS (9.7-12.2) 04/03/18 22:32 INR 1.1 04/03/18 22:32 APTT 27 SECONDS (21-34) 04/03/18 22:32 - Constitutional Appears: No Acute Distress - Head Exam Head Exam: ATRAUMATIC, NORMAL INSPECTION, NORMOCEPHALIC - Eye Exam Eye Exam: EOMI, Normal appearance, PERRL Pupil Exam: NORMAL ACCOMODATION, PERRL - Respiratory Exam Respiratory Exam: Clear to Ausculation Bilateral, NORMAL BREATHING PATTERN - Cardiovascular Exam Cardiovascular Exam: REGULAR RHYTHM, +S1, +S2, Murmur Additional comments: 4/6 esm at aortic area Assessment and Plan (1) Diabetes Status: Acute (2) Foot infection Status: Acute (3) Peripheral vascular disease Status: Acute (4) CHF (congestive heart failure) Status: Acute (5) Aortic stenosis Status: Acute (6) CKD (chronic kidney disease) Status: Acute
[2018-04-10] MEDS: (Novolog) Insulin Aspart, Recombinant 100 u/ml 10 ml vial SC SCH ×2 (08:29→12:35)
[2018-04-10] MEDS: Multiple Vitamins Tab PO SCH (09:51)
[2018-04-10] MEDS: Enoxaparin 40 mg Syringe SC SCH (09:52)
--- NOTE | 2018-04-10 14:16 | PCM.HF ---
Heart Failure Core Measure - Heart Failure Ejection Fraction: 40 % or Greater CLARY Inhibitor Prescribed: No Contraindication/Reason for not providing: EF >40 Beta-Evangelista Prescribed: Carvedilol Angiotensin II Receptor Evangelista Prescribed: No Contraindication/Reason for not providing: EF >40 AnticoagulationTherapy for Atrial Fibrillation/Atrialflutter: No Contraindication/Reason for not providing: NO AFIB Aldosterone Antagonist Prescribed: No Contraindication/Reason for not providing: EF >40 Hydralazine Nitrate Prescribed: Yes Implantable Cardioverter Defibrillator Therapy: No Contraindication/Reason for not providing: EF >40 Cardiac Resynchronization Therapy Prescribed: No Contraindication/Reason for not providing: EF >40 - Follow up Will be discharged to: Home Follow Up Date (must be within 7 days from discharge): 04/15/18 Follow Up Time: 09:00
[2018-04-10 16:25] VITALS: PULSE 67
--- NOTE | 2018-04-10 16:35 | CP.PCM.PN ---
Subjective - Date & Time of Evaluation Date of Evaluation: 04/10/18 Time of Evaluation: 16:35 - Subjective Subjective: PT CLEARED FOR D/C TODAY PER Silverio PATEL. NO FURTHER W/U PER CARDIO OR PODIATRY. PT INSTRUCTED ON FOLLOW UP APPTS AND ON NEW RX. PT VERBALIZES UNDERSTANDING OF D/C PLAN AND NEW RX. NO FURTHER ORDERS. PT'S FAMILY TO PICK HIM UP THIS EVENING. - SEGUIMIENTO CON EL DR. PATEL O JACOBO DOCTOR PRIMARIO EN LA OFICINA EN 1 SEMANA --- LLAME A LA OFICINA PARA HACER JACOBO JENNY. - SEGUIMIENTO CON EL DR. VILLASENOR (CARDILOGO) EN LA OFICINA DENTRO DE 2-3 SEMANAS - -- LLAME A LA OFICINA PARA HACER JACOBO JENNY. - SEGUIMIENTO CON EL DR. DELANEY (DOCTOR DE PIE) EN LA OFICINA DENTRO DE 1 SEMANA --- LLAME A LA OFICINA PARA HACER JACOBO JENNY. -CONTINUAR LOS MEDICAMENTOS [facility]. -NUEVOS MEDICAMENTOS: 1) HYDRALAZINE 100 MG POR BOCA CADA 8 HORAS. 2) METFORMIN 500 MG POR BOCA DOS VECES AL DA. 3) JANUVIA 50 MG POR LA BOCA DIARIAMENTE. 4) UN UNIDO DE BACTROBAN PARA JACOBO PIE. -Para otras inquietudes o preguntas, contctese con el DR. KIT MONDRAGON. -FOLLOW UP WITH DR. PATEL OR YOUR PRIMARY DOCTOR IN THE OFFICE IN 1 WEEK--- CALL THE OFFICE TO MAKE YOUR APPOINTMENT. -FOLLOW UP WITH DR. VILLASENOR (ENGINEERING OFFICER) IN THE OFFICE WITHIN 2-3 WEEKS---CALL THE OFFICE TO MAKE YOUR APPOINTMENT. -FOLLOW UP WITH DR. DELANEY (FOOT DOCTOR ) IN THE OFFICE WITHIN 1 WEEK---CALL THE OFFICE TO MAKE YOUR APPOINTMENT. -CONTINUE HOME MEDICATIONS USUAL. -NEW MEDICATIONS: 1) HYDRALAZINE 100 MG BY MOUTH EVERY 8 HOURS. 2) METFORMIN 500 MG BY MOUTH TWICE A DAY. 3) JANUVIA 50 MG BY MOUTH DAILY. 4) BACTROBAN OINTMENT FOR YOUR FOOT. -FOR FURTHER CONCERNS OR QUESTIONS, CONTACT DR. JORGE'S OFFICE. Objective - Vital Signs/Intake and Output Vital Signs (last 24 hours): Temp Pulse Resp BP Pulse Ox 97.9 F 67 20 160/65 H 95 04/10/18 08:49 04/10/18 16:00 04/10/18 08:49 04/10/18 09:51 04/10/18 08:49 Intake and Output: 04/10/18 04/10/18 06:59 18:59 Intake Total 320 500 Output Total 300 Balance 20 500 - Medications Medications: Current Medications Carvedilol (Coreg) 25 mg PO BID [facility] Last Admin: 04/10/18 09:51 Dose: 25 mg Clopidogrel Bisulfate (Plavix) 75 mg PO DAILY [facility] Last Admin: 04/10/18 09:51 Dose: 75 mg Enoxaparin Sodium (Lovenox) 40 mg SC DAILY [facility] Last Admin: 04/10/18 09:52 Dose: 40 mg Furosemide (Lasix) 40 mg PO DAILY [facility] Last Admin: 04/10/18 09:51 Dose: 40 mg Hydralazine HCl (Apresoline) 100 mg PO Q8H [facility] Last Admin: 04/10/18 11:30 Dose: 100 mg Insulin Aspart (Novolog) 0 unit SC [facility] PRN Reason: Protocol Last Admin: 04/10/18 12:35 Dose: 3 unit Isosorbide Mononitrate (Imdur Er) 30 mg PO DAILY [facility] Last Admin: 04/10/18 09:51 Dose: 30 mg Metformin HCl (Glucophage) 500 mg PO BID [facility] Last Admin: 04/10/18 09:51 Dose: 500 mg Multivitamins (Hexavitamin) 1 tab PO DAILY [facility] Last Admin: 04/10/18 09:51 Dose: 1 tab Mupirocin (Bactroban Ointment) 1 gm TOP DAILY [facility] Last Admin: 04/10/18 09:51 Dose: 1 gm Rosuvastatin Calcium (Crestor) 20 mg PO HS [facility] Last Admin: 04/09/18 21:40 Dose: 20 mg Sitagliptin Phosphate (Januvia) 50 mg PO DAILY [facility] Last Admin: 04/10/18 09:51 Dose: 50 mg - Labs Labs: 04/08/18 06:17 04/08/18 06:17 PT 11.7 SECONDS (9.7-12.2) 04/03/18 22:32 INR 1.1 04/03/18 22:32 APTT 27 SECONDS (21-34) 04/03/18 22:32
[2018-04-10 18:06] VITALS: BP 160/53; TEMP 97.6; O2SAT 98
--- NOTE | 2018-04-11 05:11 | CP.PCM.DIS ---
Provider - Provider Date of Admission: 04/03/18 23:10 Attending physician: Ben Rodriguez MD Time Spent in preparation of Discharge (in minutes): 45 Diagnosis - Discharge Diagnosis (1) Diabetes Status: Acute (2) Foot infection Status: Acute (3) Peripheral vascular disease Status: Acute Hospital Course - Lab Results Lab Results: Micro Results 04/07/18 06:36 Nose MRSA Culture (Admit) - Final MRSA NOT DETECTED 04/04/18 Unknown Nose MRSA Culture (Admit) - Final MRSA NOT DETECTED Most Recent Lab Values WBC 8.7 K/uL (4.8-10.8) 04/08/18 06:17 RBC 2.94 Mil/uL (4.40-5.90) L 04/08/18 06:17 Hgb 9.3 g/dL (12.0-18.0) L 04/08/18 06:17 Hct 27.4 % (35.0-51.0) L 04/08/18 06:17 MCV 93.0 fL (80.0-94.0) 04/08/18 06:17 MCH 31.5 pg (27.0-31.0) H 04/08/18 06:17 MCHC 33.9 g/dL (33.0-37.0) 04/08/18 06:17 RDW 13.7 % (11.5-14.5) 04/08/18 06:17 Plt Count 161 K/uL (130-400) 04/08/18 06:17 MPV 9.0 fL (7.2-11.7) 04/08/18 06:17 Neut % (Auto) 74.3 % (50.0-75.0) 04/04/18 11:50 Lymph % (Auto) 11.7 % (20.0-40.0) L 04/04/18 11:50 [place] % (Auto) 8.1 % (0.0-10.0) 04/04/18 11:50 Eos % (Auto) 4.8 % (0.0-4.0) H 04/04/18 11:50 Baso % (Auto) 1.1 % (0.0-2.0) 04/04/18 11:50 Neut # (Auto) 5.8 K/uL (1.8-7.0) 04/04/18 11:50 Lymph # (Auto) 0.9 K/uL (1.0-4.3) L 04/04/18 11:50 [place] # (Auto) 0.6 K/uL (0.0-0.8) 04/04/18 11:50 Eos # (Auto) 0.4 K/uL (0.0-0.7) 04/04/18 11:50 Baso # (Auto) 0.1 K/uL (0.0-0.2) 04/04/18 11:50 PT 11.7 SECONDS (9.7-12.2) 04/03/18 22:32 INR 1.1 04/03/18 22:32 APTT 27 SECONDS (21-34) 04/03/18 22:32 Sodium 142 mmol/L (132-148) 04/08/18 06:17 Potassium 4.4 mmol/L (3.6-5.2) 04/08/18 06:17 Chloride 102 mmol/L (98-107) 04/08/18 06:17 Carbon Dioxide 29 mmol/L (22-30) 04/08/18 06:17 Anion Gap 15 (10-20) 04/08/18 06:17 BUN 54 mg/dL (9-20) H 04/08/18 06:17 Creatinine 2.0 mg/dL (0.8-1.5) H 04/08/18 06:17 Est GFR ( Amer) 41 04/08/18 06:17 Est GFR (Non-Af Amer) 34 04/08/18 06:17 POC Glucose (mg/dL) 186 mg/dL (65-110) H 04/10/18 16:55 Random Glucose 220 mg/dL (75-110) H 04/08/18 06:17 Calcium 9.5 mg/dl (8.6-10.4) 04/08/18 06:17 Total Bilirubin 0.5 mg/dL (0.2-1.3) 04/04/18 11:50 AST 27 U/L (17-59) 04/04/18 11:50 ALT 31 U/L (21-72) 04/04/18 11:50 Alkaline Phosphatase 86 U/L (38-126) 04/04/18 11:50 Total Creatine Kinase 219 U/L (55-170) H 04/04/18 06:16 CK-MB (Mass) 5.44 ng/mL (0.0-3.38) H 04/04/18 06:16 Troponin I 0.0290 ng/mL (0.00-0.120) 04/04/18 06:16 NT-Pro-B Natriuret Pep 3460 pg/mL (0-900) H 04/03/18 22:32 Total Protein 7.1 g/dL (6.3-8.3) 04/04/18 11:50 Albumin 3.8 g/dL (3.5-5.0) 04/04/18 11:50 Globulin 3.3 gm/dL (2.2-3.9) 04/04/18 11:50 Albumin/Globulin Ratio 1.1 (1.0-2.1) 04/04/18 11:50 Triglycerides 115 mg/dL (0-149) 04/04/18 11:50 Cholesterol 105 mg/dL (0-199) 04/04/18 11:50 LDL Cholesterol Direct 47 mg/dL (0-129) 04/04/18 11:50 HDL Cholesterol 36 mg/dL (30-70) 04/04/18 11:50 - Hospital Course Hospital Course: PT SEEN AND EXAMINED, STABLE FOR DISCHARGE -FOLLOW UP WITH ME OR YOUR PRIMARY DOCTOR IN THE OFFICE IN 1 WEEK---CALL THE OFFICE TO MAKE YOUR APPOINTMENT. -FOLLOW UP WITH DR. AVILA (DIRECT SUPPORT SPECIALIST) IN THE OFFICE WITHIN 2-3 WEEKS---CALL THE OFFICE TO MAKE YOUR APPOINTMENT. -FOLLOW UP WITH DR. JOSEPH (FOOT DOCTOR ) IN THE OFFICE WITHIN 1 WEEK---CALL THE OFFICE TO MAKE YOUR APPOINTMENT. -CONTINUE HOME MEDICATIONS USUAL. -NEW MEDICATIONS: 1) HYDRALAZINE 100 MG BY MOUTH EVERY 8 HOURS. 2) METFORMIN 500 MG BY MOUTH TWICE A DAY. 3) JANUVIA 50 MG BY MOUTH DAILY. 4) BACTROBAN OINTMENT FOR YOUR FOOT. -FOR FURTHER CONCERNS OR QUESTIONS, CONTACT DR. RODRIGUEZ'S OFFICE. Discharge Exam - Head Exam Head Exam: ATRAUMATIC, NORMAL INSPECTION, NORMOCEPHALIC - Eye Exam Eye Exam: Normal appearance - Cardiovascular Exam Cardiovascular Exam: REGULAR RHYTHM, +S1, +S2, Systolic Murmur Additional comments: 4/6 ESM at aortic area - GI/Abdominal Exam GI & Abdominal Exam: Normal Bowel Sounds - Rectal Exam Rectal Exam: Deferred Discharge Plan - Discharge Medications Prescriptions: hydrALAZINE [Apresoline] 100 mg PO Q8H #90 tab Mupirocin 2% Ointment [Bactroban Ointment] 1 gm TOP DAILY #1 tube metFORMIN [glucOPHAGE] 500 mg PO BID #60 tab SITagliptin [Januvia] 50 mg PO DAILY #30 tab - Follow Up Plan Condition: FAIR Disposition: HOME/ ROUTINE Instructions: Type 2 Diabetes, Sitagliptin, Heart Healthy Diet, Heart Failure, Adult (DC), High Blood Pressure (DC), Diabetes Diet , Hydralazine, Metformin, Mupirocin, Heart Failure Exercise Guide Additional Instructions: - SEGUIMIENTO CON EL DR. RODRIGUEZ O JACOBO DOCTOR PRIMARIO EN LA OFICINA EN 1 SEMANA --- LLAME A LA OFICINA PARA HACER JACOBO JENNY. - SEGUIMIENTO CON EL DR. AVILA (CARDILOGO) EN LA OFICINA DENTRO DE 2-3 SEMANAS - -- LLAME A LA OFICINA PARA HACER JACOBO JENNY. - SEGUIMIENTO CON EL DR. JOSEPH (DOCTOR DE PIE) EN LA OFICINA DENTRO DE 1 SEMANA --- LLAME A LA OFICINA PARA HACER JACOBO JENNY. -CONTINUAR LOS MEDICAMENTOS CASER[facility] HABITUALMENTE. -NUEVOS MEDICAMENTOS: 1) HYDRALAZINE 100 MG POR BOCA CADA 8 HORAS. 2) METFORMIN 500 MG POR BOCA DOS VECES AL DA. 3) JANUVIA 50 MG POR LA BOCA DIARIAMENTE. 4) UN UNIDO DE BACTROBAN PARA JACOBO PIE. -Para otras inquietudes o preguntas, contctese con el DR. KIT MONDRAGON. -FOLLOW UP WITH DR. RODRIGUEZ OR YOUR PRIMARY DOCTOR IN THE OFFICE IN 1 WEEK--- CALL THE OFFICE TO MAKE YOUR APPOINTMENT. -FOLLOW UP WITH DR. AVILA (DIRECT SUPPORT SPECIALIST) IN THE OFFICE WITHIN 2-3 WEEKS---CALL THE OFFICE TO MAKE YOUR APPOINTMENT. -FOLLOW UP WITH DR. JOSEPH (FOOT DOCTOR ) IN THE OFFICE WITHIN 1 WEEK---CALL THE OFFICE TO MAKE YOUR APPOINTMENT. -CONTINUE HOME MEDICATIONS USUAL. -NEW MEDICATIONS: 1) HYDRALAZINE 100 MG BY MOUTH EVERY 8 HOURS. 2) METFORMIN 500 MG BY MOUTH TWICE A DAY. 3) JANUVIA 50 MG BY MOUTH DAILY. 4) BACTROBAN OINTMENT FOR YOUR FOOT. -FOR FURTHER CONCERNS OR QUESTIONS, CONTACT DR. RODRIGUEZ'S OFFICE. Weigh daily, monitor for increased swelling and notify MD if such appears Referrals: Jagdish Avila MD [Staff Provider] - Ben Rodriguez MD [Staff Provider] - Xiang Joseph DPM [Staff Provider] -
== END 2018-04-10 17:50 | disposition home or self-care (01) | DRG 299 ==
LOC: C.ER 21:40 → C.9E 23:10 → C.9I 04-04 03:02 → C.6T 04-07 03:40
PROVIDERS: ADMIT Internal Medicine; ATTEND Internal Medicine
DX: E11.51 Type 2 diabetes mellitus with diabetic peripheral angiopathy without gangrene (principal); I50.23 Acute on chronic systolic (congestive) heart failure; I13.0 Hypertensive heart and chronic kidney disease with heart failure and stage 1 through stage 4 chronic kidney disease, or unspecified chronic kidney disease; S91.212A Laceration without foreign body of left great toe with damage to nail, initial encounter; L08.9 Local infection of the skin and subcutaneous tissue, unspecified; E78.00 Pure hypercholesterolemia, unspecified; X58.XXXA Exposure to other specified factors, initial encounter; I25.10 Atherosclerotic heart disease of native coronary artery without angina pectoris; E11.22 Type 2 diabetes mellitus with diabetic chronic kidney disease; I35.0 Nonrheumatic aortic (valve) stenosis; Z86.73 Personal history of transient ischemic attack (TIA), and cerebral infarction without residual deficits; Z87.891 Personal history of nicotine dependence; N18.9 Chronic kidney disease, unspecified; Z95.0 Presence of cardiac pacemaker; Z95.1 Presence of aortocoronary bypass graft; Z79.4 Long term (current) use of insulin

== ENCOUNTER 2018-07-09 03:41 | Observation (INO) | payer MEDICARE ==
[2018-07-09 03:41] VITALS: BMI 27.4
[2018-07-09] MEDS ORDERED: Sodium Chloride 0.9% 500 ML IV STA (04:15)
[2018-07-09 04:28] LABS: BASO # 0.1 K/uL (0.0-0.2); BASO % 0.9 % (0.0-2.0); EOS # 0.2 K/uL (0.0-0.7); EOS % 1.6 % (0.0-4.0); HEMOGLOBIN 10.6 g/dL (12.0-18.0); LYMPH # 0.8 K/uL (1.0-4.3); LYMPH % 7.1 % (20.0-40.0); MEAN CELL VOLUME 90.7 fL (80.0-94.0); MEAN CORPUSCULAR HEMOGLOBIN 31.1 pg (27.0-31.0); MEAN CORPUSCULAR HGB CONC 34.3 g/dL (33.0-37.0); MEAN PLATELET VOLUME 9.4 fL (7.2-11.7); MONO # 0.8 K/uL (0.0-0.8); MONO % 6.7 % (0.0-10.0); NEUT # 9.5 K/uL (1.8-7.0); NEUT % 83.7 % (50.0-75.0); PLATELET COUNT 166 K/uL (130-400); RED CELL DISTRIBUTION WIDTH 13.6 % (11.5-14.5); WHITE BLOOD COUNT 11.3 K/uL (4.8-10.8)
[2018-07-09] MEDS ORDERED: Sodium Chloride 0.9% 1,000 ML ONE (04:31)
[2018-07-09 04:37] LABS: ALB/GLOB RATIO 1.3 (1.0-2.1); ALBUMIN 4.5 g/dL (3.5-5.0); CALCIUM 10.1 mg/dl (8.6-10.4)
--- NOTE | 2018-07-09 04:56 | C.PDOC ---
History Of Present Illness 62 year old male presents to the emergency department via ambulance. Patient's reports that the patient was found to have an altered mental status. Patient was found to be hyponatremic upon EMS arrival and was given D50. Patient complains of generalized weakness. Time Seen by Provider: 07/09/18 04:11 Chief Complaint (Nursing): Altered Mental Status History Per: Patient, EMS, Family () Onset/Duration Of Symptoms: Hrs Current Symptoms Are (Timing): Still Present Past Medical History Reviewed: Historical Data, Nursing Documentation, Vital Signs Vital Signs: Last Vital Signs Temp 96 F L 07/09/18 04:45 Pulse 54 L 07/09/18 05:48 Resp 14 07/09/18 05:48 BP 160/63 H 07/09/18 05:48 Pulse Ox 98 07/09/18 05:48 - Medical History PMH: Anemia, Arthritis, CAD, CHF, CVA, Diabetes, HTN, Hypercholesterolemia, Peripheral Edema Denies: Chronic Kidney Disease Surgical History: CABG, Cholecystectomy, Coronary Stent, Pacemaker - [facility] CORONAR ARTERIOGR-2 CATH (02/01/14) ENDOSC POLYPECTOMY OF LG INTEST (07/26/15) ESOPHAGOGASTRODUODENOSCOPY [EGD] W/CLOSED BIOPSY (07/26/15) LEFT HEART CARDIAC CATH (02/01/14) LT HEART ANGIOCARDIOGRAM (02/01/14) OCCUPATIONAL THERAPY (11/06/14) OTHER SKIN & SUBQ I D (06/05/13) PACKED CELL TRANSFUSION (09/09/14) PHYSICAL THERAPY NEC (11/06/14) TOE AMPUTATION (09/09/14) Family History: States: No Known Family Hx - Social History Hx Tobacco Use: No (Former smoker) Hx Alcohol Use: No Hx Substance Use: No - Immunization History Hx Tetanus Toxoid Vaccination: No Hx Influenza Vaccination: Yes Hx Pneumococcal Vaccination: Yes Review Of Systems Except As Marked, All Systems Reviewed And Found Negative. Constitutional: Positive for: Weakness Neurological: Positive for: Altered Mental Status Physical Exam - Physical Exam Appears: Non-toxic, No Acute Distress Skin: Warm, Dry Head: Atraumatic, Normacephalic Eye(s): bilateral: Normal Inspection Neck: Normal, Supple Chest: Symmetrical, No Tenderness Cardiovascular: Rhythm Regular, No Murmur Respiratory: Normal Breath Sounds, No Rales, No Rhonchi, No Wheezing Extremity: Normal ROM (all extremities) Neurological/Psych: Oriented x3, Normal Speech, Normal Cognition ED Course And Treatment - Laboratory Results Result Diagrams: 07/09/18 04:24 07/09/18 04:24 ECG Rhythm: Sinus Bradycardia, ST/T Changes Rate From EC O2 Sat by Pulse Oximetry: 95 (RA) Pulse Ox Interpretation: Normal - Radiology CXR: Interpreted by Me CXR Interpretation: Yes: No Acute Disease Progress Note: Plan: EKG. CMP. CBC. CXR. NaCl IV Fluids. Urinalysis. 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 Case was d/ w who accepted patient to telemetry on his service for observation. Disposition - Disposition Disposition: HOSPITALIZED Disposition Time: 06:33 Condition: FAIR Forms: [facility] (Czech) - Clinical Impression Clinical Impression: Hypoglycemia - PA / CHEMIST PHYSICAL / Resident Statement MD/DO has reviewed & agrees with the documentation as recorded. - Scribe Statement The provider has reviewed the documentation as recorded by the Scribe (Milind Wilson) All medical record entries made by the Scribe were at my direction and personally dictated by me. I have reviewed the chart and agree that the record accurately reflects my personal performance of the history, physical exam, medical decision making, and the department course for this patient. I have also personally directed, reviewed, and agree with the discharge instructions and disposition. Decision To Admit - Pt Status Changed To: Hospital Disposition Of: Observation - . Bed Request Type: Telemetry Admitting Physician: Roberta Matt Patient Diagnosis: Hypoglycemia
[2018-07-09 05:10] LABS: EOSINOPHIL 1 % (0-4); LYMPHOCYTE 6 % (20-40); MONOCYTE 6 % (0-10); NEUTROPHIL 87 % (50-75); PLATELET ESTIMATE NORMAL (NORMAL); TOTAL CELLS COUNTED 100
--- NOTE | 2018-07-09 08:28 | RAD ---
Chest x-ray single frontal view History: Diabetic. Hypoglycemia. Comparison: 04/03/2018 Findings: Moderate to severe venous congestion. Linear atelectatic changes in the right midlung zone. Patchy airspace opacification at the left lung base. Few scattered nodular densities in both lungs. Cardiomegaly. Left-sided pacemaker. Status post median sternotomy. Calcification at the aortic knob. Prior valve replacement. Degenerative changes in the spine and shoulders. Calcific tendinopathy of the right proximal humerus. Impression: Moderate to severe venous congestion. Linear atelectatic changes in the right midlung zone. Patchy airspace opacification at the left lung base. Few scattered nodular densities in both lungs. Cardiomegaly. Left-sided pacemaker. Status post median sternotomy. Calcification at the aortic knob. Prior valve replacement. Degenerative changes in the spine and shoulders. Calcific tendinopathy of the right proximal humerus.
[2018-07-09] MEDS: Multiple Vitamins Tab PO SCH (09:18)
[2018-07-09] MEDS: (Novolog) Insulin Aspart, Recombinant 100 u/ml 10 ml vial SC SCH ×3 (12:37→21:06)
--- NOTE | 2018-07-09 19:20 | CP.PCM.HP ---
History of Present Illness - History of Present Illness History of Present Illness: 62-year-old male brought by the patient's for altered mental status found to have a low sodium on arrival with low sugar Patient's sodium was [address]-T changes patient was also given D50 although sugar was 111 eventually patient is hospitalized Past medical history of anemia CAD CHF CVA diabetes hypertension hypercholesterolemia peripheral edema and chest x-ray revealed moderate to severe venous congestion cardiomegaly left sided pacemaker the detailed report as per computer Present on Admission - Present on Admission Any Indicators Present on Admission: No Past Patient History - Infectious Disease Hx of Infectious Diseases: None - Tetanus Immunizations Tetanus Immunization: Unknown - Past Medical History & Family History Past Medical History?: Yes - Past Social History Smoking Status: Former Smoker - CARDIAC Hx Congestive Heart Failure: Yes Hx Hypercholesterolemia: Yes Hx Hypertension: Yes Hx Pacemaker: Yes Hx Peripheral Edema: Yes - HEENT Hx HEENT Problems: Yes (RETINAL BLEEDING) Hx Glaucoma: Yes - RENAL Hx Chronic Kidney Disease: No - HEMATOLOGICAL/ONCOLOGICAL Hx Anemia: Yes - INTEGUMENTARY Hx Dermatological Problems: No - MUSCULOSKELETAL/RHEUMATOLOGICAL Hx Arthritis: Yes - PSYCHIATRIC Hx Substance Use: No - SURGICAL HISTORY Hx Cholecystectomy: Yes Hx Coronary Artery Bypass Graft: Yes Hx Coronary Stent: Yes - ANESTHESIA Hx Anesthesia: Yes Hx Anesthesia Reactions: No Hx Malignant Hyperthermia: No Meds Allergies/Adverse Reactions: Allergies Allergy/AdvReac Type Severity Reaction Status Date / Time No Known Allergies Allergy Verified 07/09/18 03:53 Physical Exam - Constitutional Appears: Well - Head Exam Head Exam: ATRAUMATIC, NORMAL INSPECTION, NORMOCEPHALIC - Eye Exam Eye Exam: EOMI, Normal appearance, PERRL Pupil Exam: NORMAL ACCOMODATION, PERRL - ENT Exam ENT Exam: Mucous Membranes Moist, Normal Exam - Neck Exam Neck exam: Positive for: Normal Inspection - Respiratory Exam Respiratory Exam: Decreased Breath Sounds - Cardiovascular Exam Cardiovascular Exam: REGULAR RHYTHM, +S1, +S2 - GI/Abdominal Exam GI & Abdominal Exam: Diminished Bowel Sounds, Soft - Rectal Exam Rectal Exam: Deferred Results - Vital Signs Recent Vital Signs: Last Vital Signs Temp 97.8 F 07/09/18 15:00 Pulse 70 07/09/18 15:00 Resp 20 07/09/18 15:00 BP 156/75 H 07/09/18 17:38 Pulse Ox 97 07/09/18 15:00 - Labs Result Diagrams: 07/09/18 04:24 07/09/18 04:24 Labs: Laboratory Results - last 24 hr 07/09/18 07/09/18 07/09/18 03:46 04:24 04:24 WBC 11.3 H RBC 3.40 L Hgb 10.6 L Hct 30.9 L MCV 90.7 D MCH 31.1 H MCHC 34.3 RDW 13.6 Plt Count 166 MPV 9.4 Neut % (Auto) 83.7 H Lymph % (Auto) 7.1 L [place] % (Auto) 6.7 Eos % (Auto) 1.6 Baso % (Auto) 0.9 Neut # (Auto) 9.5 H Lymph # (Auto) 0.8 L [place] # (Auto) 0.8 Eos # (Auto) 0.2 Baso # (Auto) 0.1 Neutrophils % (Manual) 87 H Lymphocytes % (Manual) 6 L Monocytes % (Manual) 6 Eosinophils % (Manual) 1 Platelet Estimate Normal RBC Morphology Normal Sodium 145 Potassium 4.0 Chloride 107 Carbon Dioxide 26 Anion Gap 17 BUN 58 H Creatinine 2.5 H Est GFR ( Amer) 32 Est GFR (Non-Af Amer) 26 POC Glucose (mg/dL) 102 Random Glucose 111 H Calcium 10.1 Total Bilirubin 0.4 AST 33 ALT 33 Alkaline Phosphatase 93 Total Protein 8.0 Albumin 4.5 Globulin 3.4 Albumin/Globulin Ratio 1.3 07/09/18 07/09/18 07/09/18 04:44 08:22 11:12 WBC RBC Hgb Hct MCV MCH MCHC RDW Plt Count MPV Neut % (Auto) Lymph % (Auto) [place] % (Auto) Eos % (Auto) Baso % (Auto) Neut # (Auto) Lymph # (Auto) [place] # (Auto) Eos # (Auto) Baso # (Auto) Neutrophils % (Manual) Lymphocytes % (Manual) Monocytes % (Manual) Eosinophils % (Manual) Platelet Estimate RBC Morphology Sodium Potassium Chloride Carbon Dioxide Anion Gap BUN Creatinine Est GFR ( Amer) Est GFR (Non-Af Amer) POC Glucose (mg/dL) 108 230 H 439 H* Random Glucose Calcium Total Bilirubin AST ALT Alkaline Phosphatase Total Protein Albumin Globulin Albumin/Globulin Ratio 07/09/18 07/09/18 11:14 17:05 WBC RBC Hgb Hct MCV MCH MCHC RDW Plt Count MPV Neut % (Auto) Lymph % (Auto) [place] % (Auto) Eos % (Auto) Baso % (Auto) Neut # (Auto) Lymph # (Auto) [place] # (Auto) Eos # (Auto) Baso # (Auto) Neutrophils % (Manual) Lymphocytes % (Manual) Monocytes % (Manual) Eosinophils % (Manual) Platelet Estimate RBC Morphology Sodium Potassium Chloride Carbon Dioxide Anion Gap BUN Creatinine Est GFR ( Amer) Est GFR (Non-Af Amer) POC Glucose (mg/dL) 390 H 379 H Random Glucose Calcium Total Bilirubin AST ALT Alkaline Phosphatase Total Protein Albumin Globulin Albumin/Globulin Ratio Assessment & Plan (1) Anemia Status: Acute (2) Aortic stenosis Status: Acute (3) CHF (congestive heart failure) Status: Acute (4) CHF (congestive heart failure) Status: Acute (5) CKD (chronic kidney disease) Status: Acute (6) Diabetes Status: Acute (7) Fever Status: Acute (8) Foot infection Status: Acute (9) Gangrene Status: Acute (10) Hyperkalemia Status: Acute (11) Hypoglycemia Status: Acute (12) Influenza Status: Acute (13) Nail avulsion Status: Acute (14) Pedal edema Status: Acute (15) Peripheral vascular disease Status: Acute (16) Ulcer Status: Acute - Assessment and Plan (Free Text) Plan: Plan home medication reconciliation cardiology consultations IV fluids chest x- ray CBC CMP EKG fingerstick 4 times daily low-dose NovoLog for hypoglycemia hold antidiabetic medications patient encouraged to eat
[2018-07-09 21:25] LABS: URINE BACTERIA RARE (<OCC); URINE BILIRUBIN NEGATIVE (NEGATIVE); URINE BLOOD NEGATIVE (NEGATIVE); URINE CLARITY Clear (Clear); URINE COLOR Straw (YELLOW); URINE GLUCOSE (UA) 3+ mg/dL (Normal); URINE LEUKOCYTE ESTERASE NEG Leu/uL (Negative); URINE PROTEIN NEGATIVE (NEGATIVE); URINE UROBILINOGEN NORMAL mg/dL (0.2-1.0)
[2018-07-10] MEDS: Multiple Vitamins Tab PO SCH (10:14)
[2018-07-10] MEDS: (Novolog) Insulin Aspart, Recombinant 100 u/ml 10 ml vial SC SCH ×4 (10:32→23:01)
--- NOTE | 2018-07-10 19:22 | CP.PCM.PN ---
Subjective - Date & Time of Evaluation Date of Evaluation: 07/10/18 Time of Evaluation: 08:45 - Subjective Subjective: clinically same Objective - Vital Signs/Intake and Output Vital Signs (last 24 hours): Temp Pulse Resp BP Pulse Ox 97.8 F 69 20 152/78 H 97 07/10/18 15:00 07/10/18 16:00 07/10/18 15:00 07/10/18 17:21 07/10/18 15:00 Intake and Output: 07/10/18 07/11/18 18:59 06:59 Output Total 600 Balance -600 - Medications Medications: Current Medications Carvedilol (Coreg) 25 mg PO BID [facility] Last Admin: 07/10/18 17:21 Dose: 25 mg Clopidogrel Bisulfate (Plavix) 75 mg PO DAILY [facility] Last Admin: 07/10/18 10:15 Dose: 75 mg Furosemide (Lasix) 40 mg PO DAILY [facility] Last Admin: 07/10/18 10:15 Dose: 40 mg Heparin Sodium (Porcine) (Heparin) 5,000 units SC Q12 [facility] Last Admin: 07/10/18 10:16 Dose: 5,000 units Hydralazine HCl (Apresoline) 100 mg PO Q8H [facility] Last Admin: 07/10/18 17:21 Dose: 100 mg Insulin Aspart (Novolog) 0 unit SC [facility] PRN Reason: Protocol Last Admin: 07/10/18 17:23 Dose: 2 units Isosorbide Mononitrate (Imdur Er) 30 mg PO DAILY [facility] Last Admin: 07/10/18 10:16 Dose: 30 mg Metformin HCl (Glucophage) 500 mg PO BID [facility] Last Admin: 07/10/18 17:21 Dose: 500 mg Multivitamins (Hexavitamin) 1 tab PO DAILY [facility] Last Admin: 07/10/18 10:14 Dose: 1 tab Rosuvastatin Calcium (Crestor) 20 mg PO HS [facility] Last Admin: 07/09/18 21:41 Dose: 20 mg - Labs Labs: 07/09/18 04:24 07/09/18 04:24 - Constitutional Appears: Well - Head Exam Head Exam: ATRAUMATIC, NORMAL INSPECTION, NORMOCEPHALIC - Eye Exam Eye Exam: EOMI, Normal appearance, PERRL Pupil Exam: NORMAL ACCOMODATION, PERRL - ENT Exam ENT Exam: Mucous Membranes Moist, Normal Exam - Neck Exam Neck Exam: Full ROM, Normal Inspection. absent: Lymphadenopathy - Respiratory Exam Respiratory Exam: Decreased Breath Sounds - Cardiovascular Exam Cardiovascular Exam: REGULAR RHYTHM, +S1, +S2 - GI/Abdominal Exam GI & Abdominal Exam: Soft, Diminished Bowel Sounds - Rectal Exam Rectal Exam: Deferred Assessment and Plan (1) Anemia Status: Acute (2) Aortic stenosis Status: Acute (3) CHF (congestive heart failure) Status: Acute (4) CHF (congestive heart failure) Status: Acute (5) CKD (chronic kidney disease) Status: Acute (6) Diabetes Status: Acute (7) Fever Status: Acute (8) Foot infection Status: Acute (9) Gangrene Status: Acute (10) Hyperkalemia Status: Acute (11) Hypoglycemia Status: Acute (12) Influenza Status: Acute (13) Nail avulsion Status: Acute (14) Pedal edema Status: Acute (15) Peripheral vascular disease Status: Acute (16) Ulcer Status: Acute - Assessment and Plan (Free Text) Plan: NovoLog coverage continue heparin Protonix Sugar is 111 No other medication as ordered Creatinine potassium is high workup as an outpatient
--- NOTE | 2018-07-10 19:40 | CARD ---
APPROVED REPORT Date of service: 07/09/2018 EKG Measurement Heart [id number] <Conclusion> Sinus bradycardia Left ventricular hypertrophy with QRS widening Nonspecific T wave abnormality Prolonged QT Abnormal ECG
[2018-07-11] MEDS: (Novolog) Insulin Aspart, Recombinant 100 u/ml 10 ml vial SC SCH ×4 (07:55→22:30)
[2018-07-11] MEDS: Multiple Vitamins Tab PO SCH (09:11)
--- NOTE | 2018-07-11 10:35 | CP.PCM.PN ---
Subjective - Date & Time of Evaluation Date of Evaluation: 07/11/18 Time of Evaluation: 08:45 - Subjective Subjective: clinically same Objective - Vital Signs/Intake and Output Vital Signs (last 24 hours): Temp Pulse Resp BP Pulse Ox 97.8 F 58 L 18 153/70 H 98 07/11/18 08:48 07/11/18 08:48 07/11/18 08:48 07/11/18 09:12 07/11/18 08:48 - Medications Medications: Current Medications Carvedilol (Coreg) 25 mg PO BID [facility] Last Admin: 07/11/18 09:12 Dose: 25 mg Clopidogrel Bisulfate (Plavix) 75 mg PO DAILY [facility] Last Admin: 07/11/18 09:12 Dose: 75 mg Furosemide (Lasix) 40 mg PO DAILY [facility] Last Admin: 07/11/18 09:11 Dose: 40 mg Heparin Sodium (Porcine) (Heparin) 5,000 units SC Q12 [facility] Last Admin: 07/11/18 09:12 Dose: 5,000 units Hydralazine HCl (Apresoline) 100 mg PO Q8H [facility] Last Admin: 07/11/18 09:11 Dose: 100 mg Insulin Aspart (Novolog) 0 unit SC ACHS [facility] PRN Reason: Protocol Last Admin: 07/11/18 07:55 Dose: 2 units Isosorbide Mononitrate (Imdur Er) 30 mg PO DAILY [facility] Last Admin: 07/11/18 09:12 Dose: 30 mg Metformin HCl (Glucophage) 500 mg PO BID [facility] Last Admin: 07/11/18 09:10 Dose: 500 mg Multivitamins (Hexavitamin) 1 tab PO DAILY [facility] Last Admin: 07/11/18 09:11 Dose: 1 tab Rosuvastatin Calcium (Crestor) 20 mg PO HS [facility] Last Admin: 07/10/18 21:54 Dose: 20 mg - Labs Labs: 07/09/18 04:24 07/09/18 04:24 - Constitutional Appears: Well - Head Exam Head Exam: ATRAUMATIC, NORMAL INSPECTION, NORMOCEPHALIC - Eye Exam Eye Exam: EOMI, Normal appearance, PERRL Pupil Exam: NORMAL ACCOMODATION, PERRL - ENT Exam ENT Exam: Mucous Membranes Moist, Normal Exam - Neck Exam Neck Exam: Full ROM, Normal Inspection. absent: Lymphadenopathy - Respiratory Exam Respiratory Exam: Decreased Breath Sounds - Cardiovascular Exam Cardiovascular Exam: REGULAR RHYTHM, +S1, +S2 - GI/Abdominal Exam GI & Abdominal Exam: Soft, Diminished Bowel Sounds - Rectal Exam Rectal Exam: Deferred Assessment and Plan (1) Anemia Status: Acute (2) Aortic stenosis Status: Acute (3) CHF (congestive heart failure) Status: Acute (4) CHF (congestive heart failure) Status: Acute (5) CKD (chronic kidney disease) Status: Acute (6) Diabetes Status: Acute (7) Fever Status: Acute (8) Foot infection Status: Acute (9) Gangrene Status: Acute (10) Hyperkalemia Status: Acute (11) Hypoglycemia Status: Acute (12) Influenza Status: Acute (13) Nail avulsion Status: Acute (14) Pedal edema Status: Acute (15) Peripheral vascular disease Status: Acute (16) Ulcer Status: Acute - Assessment and Plan (Free Text) Plan: IV Lasix sorry p.o. Lasix GI consult Metformin started Monitor blood sugar As ordered
[2018-07-11 15:55] VITALS: RESP 20
[2018-07-12] MEDS: (Novolog) Insulin Aspart, Recombinant 100 u/ml 10 ml vial SC SCH ×4 (08:20→21:14)
[2018-07-12] MEDS: Multiple Vitamins Tab PO SCH (09:33)
--- NOTE | 2018-07-12 19:43 | CP.PCM.PN ---
Subjective - Date & Time of Evaluation Date of Evaluation: 07/12/18 Time of Evaluation: 09:00 - Subjective Subjective: clinically same Objective - Vital Signs/Intake and Output Vital Signs (last 24 hours): Temp Pulse Resp BP Pulse Ox 97.8 F 55 L 20 123/78 97 07/12/18 15:08 07/12/18 16:30 07/12/18 15:08 07/12/18 18:02 07/12/18 16:30 - Medications Medications: Current Medications Carvedilol (Coreg) 25 mg PO BID [facility] Last Admin: 07/12/18 18:02 Dose: 25 mg Clopidogrel Bisulfate (Plavix) 75 mg PO DAILY [facility] Last Admin: 07/12/18 09:33 Dose: 75 mg Furosemide (Lasix) 40 mg PO DAILY [facility] Last Admin: 07/12/18 09:32 Dose: 40 mg Heparin Sodium (Porcine) (Heparin) 5,000 units SC Q12 [facility] Last Admin: 07/12/18 09:33 Dose: 5,000 units Hydralazine HCl (Apresoline) 100 mg PO Q8H [facility] Last Admin: 07/12/18 18:02 Dose: 100 mg Insulin Aspart (Novolog) 0 unit SC ACHS [facility] PRN Reason: Protocol Last Admin: 07/12/18 18:01 Dose: 4 units Isosorbide Mononitrate (Imdur Er) 30 mg PO DAILY [facility] Last Admin: 07/12/18 09:32 Dose: 30 mg Metformin HCl (Glucophage) 500 mg PO BID [facility] Last Admin: 07/12/18 18:02 Dose: 500 mg Multivitamins (Hexavitamin) 1 tab PO DAILY [facility] Last Admin: 07/12/18 09:33 Dose: 1 tab Rosuvastatin Calcium (Crestor) 20 mg PO HS [facility] Last Admin: 07/11/18 22:29 Dose: 20 mg - Labs Labs: 07/09/18 04:24 07/09/18 04:24 - Constitutional Appears: Well - Head Exam Head Exam: ATRAUMATIC, NORMAL INSPECTION, NORMOCEPHALIC - Eye Exam Eye Exam: EOMI, Normal appearance, PERRL Pupil Exam: NORMAL ACCOMODATION, PERRL - ENT Exam ENT Exam: Mucous Membranes Moist, Normal Exam - Neck Exam Neck Exam: Full ROM, Normal Inspection. absent: Lymphadenopathy - Respiratory Exam Respiratory Exam: Decreased Breath Sounds - Cardiovascular Exam Cardiovascular Exam: REGULAR RHYTHM, +S1, +S2 - GI/Abdominal Exam GI & Abdominal Exam: Soft, Diminished Bowel Sounds - Rectal Exam Rectal Exam: Deferred
[2018-07-13 08:08] VITALS: TEMP 97.9
[2018-07-13] MEDS: (Novolog) Insulin Aspart, Recombinant 100 u/ml 10 ml vial SC SCH ×3 (09:00→17:58)
[2018-07-13] MEDS: Multiple Vitamins Tab PO SCH (09:07)
[2018-07-13 15:59] VITALS: PULSE 66; O2SAT 99
[2018-07-13 17:58] VITALS: BP 132/76
--- NOTE | 2018-07-13 18:57 | CP.PCM.PN ---
Subjective - Date & Time of Evaluation Date of Evaluation: 07/13/18 Time of Evaluation: 09:00 - Subjective Subjective: clinically same Objective - Vital Signs/Intake and Output Vital Signs (last 24 hours): Temp Pulse Resp BP Pulse Ox 97.9 F 66 20 132/76 99 07/13/18 15:00 07/13/18 15:00 07/13/18 15:00 07/13/18 17:58 07/13/18 16:39 - Medications Medications: Current Medications Carvedilol (Coreg) 25 mg PO BID [facility] Last Admin: 07/13/18 17:58 Dose: 25 mg Clopidogrel Bisulfate (Plavix) 75 mg PO DAILY [facility] Last Admin: 07/13/18 09:08 Dose: 75 mg Furosemide (Lasix) 40 mg PO DAILY [facility] Last Admin: 07/13/18 09:08 Dose: 40 mg Hydralazine HCl (Apresoline) 100 mg PO Q8H [facility] Last Admin: 07/13/18 17:58 Dose: 100 mg Insulin Aspart (Novolog) 0 unit SC [facility] PRN Reason: Protocol Last Admin: 07/13/18 17:58 Dose: 2 units Isosorbide Mononitrate (Imdur Er) 30 mg PO DAILY [facility] Last Admin: 07/13/18 09:08 Dose: 30 mg Metformin HCl (Glucophage) 500 mg PO BID [facility] Last Admin: 07/13/18 17:57 Dose: 500 mg Multivitamins (Hexavitamin) 1 tab PO DAILY [facility] Last Admin: 07/13/18 09:07 Dose: 1 tab Rosuvastatin Calcium (Crestor) 20 mg PO HS [facility] Last Admin: 07/12/18 21:11 Dose: 20 mg - Labs Labs: 07/09/18 04:24 07/09/18 04:24 - Constitutional Appears: Well - Head Exam Head Exam: ATRAUMATIC, NORMAL INSPECTION, NORMOCEPHALIC - Eye Exam Eye Exam: EOMI, Normal appearance, PERRL Pupil Exam: NORMAL ACCOMODATION, PERRL - ENT Exam ENT Exam: Mucous Membranes Moist, Normal Exam - Neck Exam Neck Exam: Full ROM, Normal Inspection. absent: Lymphadenopathy - Respiratory Exam Respiratory Exam: Decreased Breath Sounds - Cardiovascular Exam Cardiovascular Exam: REGULAR RHYTHM, +S1, +S2 - GI/Abdominal Exam GI & Abdominal Exam: Soft, Diminished Bowel Sounds - Rectal Exam Rectal Exam: Deferred Assessment and Plan - Assessment and Plan (Free Text) Plan: Discharge planning Metformin Follow-up with the PMD Insulin As ordered
== END 2018-07-13 20:01 | disposition home or self-care (01) ==
LOC: C.ER 03:41 → C.9E 06:32 → C.5S 07:46
PROVIDERS: ADMIT Internal Medicine Nephrology; ATTEND Internal Medicine Nephrology
DX: E11.649 Type 2 diabetes mellitus with hypoglycemia without coma (principal); E78.00 Pure hypercholesterolemia, unspecified; E87.1 Hypo-osmolality and hyponatremia; I11.0 Hypertensive heart disease with heart failure; I25.10 Atherosclerotic heart disease of native coronary artery without angina pectoris; I50.9 Heart failure, unspecified; Z86.73 Personal history of transient ischemic attack (TIA), and cerebral infarction without residual deficits; Z87.891 Personal history of nicotine dependence; Z95.1 Presence of aortocoronary bypass graft; Z95.5 Presence of coronary angioplasty implant and graft; D64.9 Anemia, unspecified
CPT/HCPCS: 71045; 80053; 81001; 82948; 85025; 93005; 96372; 97116; 97162; 99285; G0378; G8978; G8979; J1644; J7040

== ENCOUNTER 2019-03-24 10:07 | Outpatient (CLI) | payer MEDICARE | END 2019-03-24 10:08 | disposition home or self-care (01) | LOC: C.USIC 10:08 | DX: N18.4 Chronic kidney disease, stage 4 (severe) (principal) ==